=== PATIENT | female | born 1960 | race Caucasian/White ===

== ENCOUNTER 2020-05-22 07:50 | Outpatient (REF) | payer OTHER, SELFPAY ==
[2020-05-22 11:22] LABS: Hematocrit 43.5 % (37-47); Hemoglobin 13.3 g/dl (12.0-16.0); Mean Corpuscular HGB Conc 30.6 g/dl (31.0-35.0); Mean Corpuscular Hemoglobin 31.6 pg (27.0-33.0); Mean Corpuscular Volume 103.3 fL (80-98); Mean Platelet Volume 10.9 fL (9.4-12.3); Platelet Count 228 X10*3/uL (160-400); Red Blood Count 4.21 X10*6/uL (4.20-5.50); Red Cell Distribution Width 12.7 % (11.0-16.0); White Blood Count 4.6 X10*3/uL (4.8-10.8)
[2020-05-22 11:29] LABS: Glucose Urine UA NEG (NEG); Leukocyte Esterase Urine NEG (NEG); Nitrite Urine NEG (NEG); Specific Gravity - Urine 1.025 (1.005-1.025); Urine Blood NEG (NEG); Urine Ketones NEG (NEG); Urine Protein NEG (NEG-TRACE)
[2020-05-22 11:33] LABS: Color Urine YELLOW
[2020-05-22 11:34] LABS: Appearance Urine CLEAR
[2020-05-22 11:43] LABS: Alanine Aminotransferase 14 U/L (0-31); Albumin Level 4.4 g/dL (3.5-5.0); Alkaline Phosphatase 47 U/L (39-117); Anion Gap 13 (12-20); Aspartate Amino Transferase 17 U/L (5-31); Bilirubin Total 0.3 mg/dL (0.0-1.0); Blood Urea Nitrogen 21 mg/dL (9-16); Carbon Dioxide 28 mmol/L (22-29); Chloride 104 mmol/L (96-108); Cholesterol 214 mg/dL; Estimated Glomerular Filt Rate > 60; Glucose Fasting 85 mg/dL (60-99); HDL Cholesterol 76 mg/dL; LDL Cholesterol Calculated 123 mg/dl; Magnesium 2.3 mg/dL (1.6-2.6); Potassium 4.7 mmol/l (3.3-5.1); Sodium 140 mmol/L (135-145); Total Protein 6.9 g/dL (6.5-8.0); Triglycerides 79 mg/dL
[2020-05-22 12:02] LABS: RBC Urine 0 /HPF (0); Squamous Epithelial Cell Urine 2+ /LPF; WBC Urine 0-2 /HPF (0-4)
[2020-05-22 12:07] LABS: TSH reflex Free T4 1.65 mIU/mL (0.32-4.0)
[2020-05-22 14:47] LABS: Calcium Oxalate Crystals Urine TRACE /LPF
== END 2020-05-22 07:51 | disposition home or self-care (01) ==
LOC: HO.HMGCLDS 07:50
PROVIDERS: PCP Internal Medicine; Visit Provider Internal Medicine
DX: Z01.419 Encounter for gynecological examination (general) (routine) without abnormal findings (principal); G47.30 Sleep apnea, unspecified; R00.2 Palpitations
CPT/HCPCS: 36415; 80053; 80061; 81001; 83735; 84443; 85027

== ENCOUNTER → 2020-08-29 14:11 | Outpatient (REF) | payer OTHER, SELFPAY ==
--- NOTE | 2020-08-29 14:30 | ECG_ITS ---
Hook-up date: 2020-08-29 14:21:00 Duration: 24:07:00 Test Indications: PALPITATIONS Medications: 158619 QRS complexes 1383 Ventricular ectopics which represent 1 % of total QRS comp. 53 Supraventricular ectopics which represent <1 % of total QRS comp. * Paced QRS complexs which represent % of total QRS comp. VENTRICULAR ECTOPY 1383 Isolated 0 Bigeminal Cycles 0 Couplets 0 Runs 0 Beats in Runs * Beats LONGEST at * BPM at :: -- * Beats FASTEST at * BPM at :: -- SUPRAVENTRICULAR ECTOPY 39 Isolated 2 Couplets 3 Runs 10 Beats in Runs 4 Beats LONGEST at 160 BPM at 09:37:47 2020-08-30 3 Beats FASTEST at 176 BPM at 13:28:19 2020-08-30 HEART RATES 71 MIN at 02:27:37 2020-08-30 90 AVG 117 MAX at 20:39:41 2020-08-29 LONGEST RR 0.8720 secs at 04:39:50 2020-08-30 S-T LEVELS Channel 1 - 128 mm at 14:21:00 2020-08-29 - 128 mm at 14:21:00 2020-08-29 Channel 2 - 128 mm at 14:21:00 2020-08-29 - 128 mm at 14:21:00 2020-08-29 Channel 3 - 128 mm at 03:34:01 -- - 128 mm at 03:34:01 Basic rhythm Normal sinus rhythm No long pause or profound bradycardia Frequent Premature ventricular complexes Rare Premature atrial complexes Patient reported symptoms of palpitation happend within 10 minutes after the PVC Referred By: Sofi Castillo Overread By: DAVIAN KRUSE MD
== END ==
LOC: HO.CARD 14:11
PROVIDERS: Visit Provider Internal Medicine
DX: R00.2 Palpitations (principal)
CPT/HCPCS: 93225; 93226

== ENCOUNTER 2021-03-24 13:59 | Outpatient (REF) | payer OTHER, SELFPAY | END 2021-03-24 14:00 | disposition home or self-care (01) | LOC: HO.HMGCLDS 13:59 | PROVIDERS: PCP Internal Medicine; Visit Provider Internal Medicine | DX: Z20.822 Contact with and (suspected) exposure to COVID-19 (principal) | CPT/HCPCS: C9803; U0003; U0005 ==

== ENCOUNTER 2022-02-11 08:11 | Outpatient (REF) | payer BC, SELFPAY ==
[2022-02-11 11:38] LABS: MANUAL DIFF FLAG NO
[2022-02-11 11:48] LABS: Basophils Percent Auto 0.8 % (0-2); Eosinophils Absolute Auto 0.1 X10*3/uL (0.0-0.4); Eosinophils Percent Auto 2.1 % (0-4); Hematocrit 42.9 % (37.0-47.0); Hemoglobin 13.4 g/dl (12.0-16.0); Lymphocytes Absolute Auto 2.5 X10*3/uL (1.2-4.9); Lymphocytes Percent Auto 51.3 % (20-40); Mean Corpuscular HGB Conc 31.2 g/dl (31.0-35.0); Mean Corpuscular Hemoglobin 31.7 pg (27.0-33.0); Mean Corpuscular Volume 101.4 fL (80.0-98.0); Mean Platelet Volume 10.6 fL (9.4-12.3); Monocytes Absolute Auto 0.4 X10*3/uL (0.1-1.2); Monocytes Percent Auto 8.2 % (2-11); Neutrophils Absolute Auto 1.8 x10*3/uL (2.0-8.3); Neutrophils Percent Auto 37.6 % (45-73); Platelet Count 239 X10*3/uL (160-400); Red Blood Count 4.23 X10*6/uL (4.20-5.50); Red Cell Distribution Width 12.6 % (11.0-16.0); White Blood Count 4.9 X10*3/uL (4.8-10.8)
[2022-02-11 12:05] LABS: Alanine Aminotransferase 18 U/L (0-31); Albumin Level 4.4 g/dL (3.5-5.0); Alkaline Phosphatase 50 U/L (39-117); Anion Gap 15 (12-20); Aspartate Amino Transferase 21 U/L (5-31); Bilirubin Total 0.6 mg/dL (0.0-1.0); Blood Urea Nitrogen 15 mg/dL (9-16); Calcium 8.9 mg/dL (8.4-10.2); Carbon Dioxide 27 mmol/L (22-29); Chloride 105 mmol/L (96-108); Cholesterol 224 mg/dL; Estimated Glomerular Filt Rate > 60; Glucose Fasting 84 mg/dL (60-99); HDL Cholesterol 69 mg/dL; LDL Cholesterol Calculated 134 mg/dl; Potassium 4.5 mmol/L (3.3-5.1); Sodium 142 mmol/L (135-145); Total Protein 6.7 g/dL (6.5-8.0); Triglycerides 109 mg/dL
[2022-02-11 12:14] LABS: Appearance Urine CLEAR; Color Urine YELLOW; Glucose Urine UA NEG (NEG); Leukocyte Esterase Urine NEG (NEG); Nitrite Urine NEG (NEG); PH 5.5 (5.0-8.0); Specific Gravity - Urine 1.025 (1.005-1.025); Urine Blood NEG (NEG); Urine Ketones NEG (NEG); Urine Protein NEG (NEG-TRACE)
[2022-02-11 12:17] LABS: TSH reflex Free T4 2.26 uIU/mL (0.32-4.0); Vitamin D 25-OH Total 24.9 ng/mL (>30)
== END 2022-02-11 08:12 | disposition home or self-care (01) ==
LOC: HO.HMGCLDS 08:11
PROVIDERS: PCP Internal Medicine; Visit Provider Internal Medicine
DX: Z00.00 Encounter for general adult medical examination without abnormal findings (principal); E55.9 Vitamin D deficiency, unspecified; E78.00 Pure hypercholesterolemia, unspecified
CPT/HCPCS: 36415; 80053; 80061; 81003; 82306; 84443; 85025

== ENCOUNTER → 2022-10-21 14:13 | Outpatient (BNVA) | payer BC, SELFPAY | PROVIDERS: PCP Internal Medicine; Visit Provider Physician Assistant | DX: Z13.89 Encounter for screening for other disorder (principal) ==

== ENCOUNTER → 2022-11-12 13:50 | Outpatient (BNVA) | payer BC, SELFPAY | PROVIDERS: PCP Internal Medicine; Visit Provider Internal Medicine | DX: R00.2 Palpitations (principal); Z86.79 Personal history of other diseases of the circulatory system | CPT/HCPCS: 93005 ==

== ENCOUNTER → 2022-12-10 13:48 | Outpatient (REF) | payer BC, SELFPAY ==
--- NOTE | 2022-12-10 13:53 | HM_ITS ---
* Total monitoring time 14 days. * Underlying rhythm is sinus. Average ventricular rate 86/Min. Range 67 to 131/Min. * Occasional supraventricular ectopy. Very brief runs. Low burden. * Occasional ventricular ectopy. Circle of 0.7%. Isolated beats. No runs. * No significant pauses or AV blocks. * No patient markers or diary events. MTDD
--- NOTE | 2022-12-10 13:53 | CA_ITS ---
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 Normal LV systolic function with grade 1 diastolic dysfunction 2. Normal cardiac valvular Doppler 3. No gross pericardial effusion Findings Left Ventricle Normal left ventricular size, thickness, and systolic function. The visually estimated ejection fraction is between 60-65%. There is no evidence of regional wall motion abnormalities. Spectral Doppler is indicative of an impaired relaxation filling pattern. E/E prime ratio is <8, consistent with normal filling pressures. Evidence suggests grade I (mild) diastolic dysfunction. Right Ventricle Normal right ventricular cavity size and systolic function. Atria Both atria are normal in size. There is no evidence of interatrial shunt. Aortic Valve Normal aortic valve structure and function. There is no aortic valve stenosis. There is no aortic valve regurgitation. Mitral Valve Normal mitral valve structure and function. There is trace mitral valve regurgitation. There is no mitral valve stenosis. Pulmonic Valve The pulmonic valve is likely normal. There is trace pulmonic valve regurgitation. Tricuspid Valve Normal tricuspid valve structure. Tricuspid regurgitation envelope is inadequate for calculation of right ventricular systolic pressure. Normal right atrial pressure. Great Vessels All visible segments of the aorta are normal in size. The pulmonary artery was not well visualized. Venous The inferior vena cava is normal in size and collapses greater than 50% with inspiration. Pericardium/Pleural There is no evidence of pericardial effusion. Prior Study Comparison No prior study available for comparison. Measurements 2D Linear Measurements IVSd: 0.76 0.6-0.9/0.6-1.0 cm LVIDd: 4.53 3.9-5.3/4.2-5.9 cm LVIDd Index: 2.70 2.4-3.2/2.2-3.1 cm/m2 LVIDs: 2.96 2.0-3.6 cm LVPWd: 0.72 0.7-1.1 cm LA Diam: 3.00 2.7-3.8/3.0-4.0 cm LAIDs Index: 1.79 1.5-2.3 cm/m2 LV Mass: 129.76 67-162/88-224 g LV Mass Index: 77.24 43-95/49-115 g/m2 LVOT Diam: 1.80 3.0+(-)1.3 cm 2D Systolic Function EF 4C: 59.20 >55% EF 2C: 60.60 >55% EF BiP: 60.80 >55% Mitral Valve MV Pk E: 0.69 MV PK A: 0.66 MV Decel Time: 143.00 E/A: 1.00 E'Lateral: 9.03 E'Medial: 7.18 E/E' Med: 9.60 E/E' Lat: 7.60 PHT: 42.00 MVA PHT: 5.24 Decel [place]: 4.78 Aortic Valve AoV Pk Maikel: 1.19 AoV Mn Maikel: 0.78 AoV VTI: 0.24 AoV Pk Grad: 6.00 Aov Mn Grad: 3.00 MARCO Cont.VTI: 2.26 LVOT LVOT Pk Maikel: 0.95 LVOT Mn Maikel: 0.63 LVOT VTI: 0.21 LVOT Pk Grad: 4.00 LVOT Mn Grad: 2.00 LVOT Diam: 1.80 LVOT Area: 2.54 Diastolic Function MV Pk E: 0.69 MV Pk A: 0.66 E/A: 1.00 E'Medial: 7.18 E/E' Med: 9.60 E' Laterial: 9.03 E/E' Lat: 7.60 Right Ventricle TAPSE (mm): 20.70 TVS' Maikel: 14.00 Tricuspid Valve RA Press: 3.00 Great Vessels Aorta Sinus of Valsalva: 3.02 2.0-3.[address] [place]: 2.21 1.7-3.4 cm Ao Asc: 2.70 2.1-3.4 cm Ao Arch: 2.30 Updated in Other Vendor System with Status of Final Devendra Loaiza MD electronically signed on 12/11/2022 3:03:38 PM with status of Final
== END ==
LOC: HO.CARD 13:48
PROVIDERS: PCP Internal Medicine; Visit Provider Internal Medicine
DX: R00.2 Palpitations (principal); Z86.79 Personal history of other diseases of the circulatory system
CPT/HCPCS: 93246; 93306

== ENCOUNTER 2023-01-02 07:39 | Outpatient (REF) | payer BC, SELFPAY ==
[2023-01-02 12:13] LABS: Alanine Aminotransferase 15 U/L (0-31); Albumin Level 4.4 g/dL (3.5-5.0); Alkaline Phosphatase 47 U/L (39-117); Anion Gap 11 (12-20); Aspartate Amino Transferase 19 U/L (5-31); Bilirubin Total 0.5 mg/dL (0.0-1.0); Blood Urea Nitrogen 16 mg/dL (9-16); Calcium 9.4 mg/dL (8.4-10.2); Carbon Dioxide 27 mmol/L (22-29); Chloride 106 mmol/L (96-108); Cholesterol 202 mg/dL; Estimated Glomerular Filt Rate > 60; Glucose Random 90 mg/dL (60-115); HDL Cholesterol 76 mg/dL; LDL Cholesterol Calculated 108 mg/dl; Potassium 4.3 mmol/L (3.3-5.1); Sodium 140 mmol/L (135-145); Thyroid Stimulating Hormone 1.84 uIU/mL (0.32-4.0); Triglycerides 90 mg/dL
== END 2023-01-02 07:40 | disposition home or self-care (01) ==
LOC: HO.HMGCLDS 07:39
PROVIDERS: PCP Internal Medicine; Visit Provider Physician Assistant
DX: K52.9 Noninfective gastroenteritis and colitis, unspecified (principal); K58.9 Irritable bowel syndrome, unspecified; F41.9 Anxiety disorder, unspecified; R19.8 Other specified symptoms and signs involving the digestive system and abdomen; E55.9 Vitamin D deficiency, unspecified
CPT/HCPCS: 36415; 80053; 80061; 82607; 82746; 84443; 85025

== ENCOUNTER 2023-01-06 11:53 | Day surgery (SDC) | payer BC, SELFPAY ==
--- NOTE | 2023-01-02 14:29 | HO.ANESPROP2 ---
Documented by User: Devika Colmenares NP 01/02/23 14:33 HPI - Anesthesia Eval Consult details Narrative: 62yo F for Colonoscopy. PMFSH Active Problems Active Problems: All Active Problems (Updated 11/12/22 @ 14:10 by To Cast MD) Shortness of breath (Acute) History of atrial fibrillation (Acute) History of colonic polyps (Acute) Vitamin D deficiency (Acute) Anxiety (Acute) High cholesterol (Acute) Hx of mammogram (Acute) H/O colonoscopy (Acute) Basal cell carcinoma (Acute) Palpitations (Acute) Annual physical exam (Acute) Sleep apnea (Acute) Normal pelvic exam (Acute) Past Medical History Medical History (Updated 01/06/23 @ 12:06 by Nicole Marti, RN) Alopecia Annual physical exam Anxiety Arthritis Basal cell carcinoma Depression Hearing loss High cholesterol Hx of mammogram Migraine Normal pelvic exam Palpitations Plantar fasciitis Shortness of breath Sleep apnea Family History Family History Father High cholesterol Osteoarthritis Gout HTN (hypertension) Diabetes mellitus Mother Depression Psoriasis Rheumatoid arthritis Dementia Surgical History Surgical History (Updated 01/06/23 @ 12:06 by Nicole Marti RN) H/O colonoscopy History of partial hysterectomy History of removal of ovarian cyst History of vaginal hysterectomy Hx of hand surgery Hx of skin cancer, basal cell Social History Social History Household Members: Spouse Household Members Other:: lives with boyfriend, 25 and 28, 5 yr grandson, works at [employer] Housing: House Alcohol intake: never Patient Tobacco Use Status: Former Tobacco user Quit Date: 34 yrs ago e-Cigarette/Vaping Use: Never Used Use of substances other than those prescribed or required for medical reasons: No Are you DNR?: No Advance Directives: No Advance Directives Information Provided: Yes Current occupational status: employed Cognitive needs: No Hearing needs: No Vision needs: Yes Meds Allergies Allergy/AdvReac Type Severity Reaction Status Date / Time No Known Allergies Allergy Verified 11/12/22 13:55 [No Known Allergies*] Home Medications Medication Instructions Recorded Confirmed Last Taken Type estradiol 0.5 mg tablet 0.5 mg PO DAILY 05/19/20 11/12/22 Unknown History finasteride 5 mg tablet 1.25 mg PO DAILY 05/19/20 11/12/22 Unknown History valacyclovir 500 mg tablet 500 mg PO DAILY 05/19/20 11/12/22 Unknown History Exam Exam Date and Time: January 02, 2023 1429 Pertinent Lab Results Pertinent Lab Results: Laboratory Tests 01/02/23 01/02/23 08:00 08:00 WBC 4.9 Hgb 13.1 Hct 42.4 Plt Count 228 Sodium 140 Potassium 4.3 Chloride 106 Carbon Dioxide 27 BUN 16 Creatinine 0.83 Narrative Narrative: EKG 10/2022 sinus rhythm at 91/Min; no significant ST-T changes and otherwise unremarkable.? Normal NH and corrected QT. 14 Day Holter 11/2022 Total monitoring time 14 days. Underlying rhythm is sinus.? Average ventricular rate 86/Min.? Range 67 to 131/Min. Occasional supraventricular ectopy.? Very brief runs.? Low burden. Occasional ventricular ectopy.? [place] of 0.7%.? Isolated beats.? No runs. No significant pauses or AV blocks. No patient markers or diary events. ECHO 11/2022 Conclusions: - 1.? Normal LV systolic function with grade 1 diastolic ? dysfunction? 2.? Normal cardiac valvular Doppler? 3.? No gross pericardial effusion? ? ? Assessment and Plan Assessment Anesthesia Assessment: Chart Reviewed Documented by User: Vance Peters MD 01/06/23 12:40 [facility] Past Medical History Medical History (Updated 01/06/23 @ 12:06 by Nicole Marti RN) Alopecia Annual physical exam Anxiety Arthritis Basal cell carcinoma Depression Hearing loss High cholesterol Hx of mammogram Migraine Normal pelvic exam Palpitations Plantar fasciitis Shortness of breath Sleep apnea Family History Family History Father High cholesterol Osteoarthritis Gout HTN (hypertension) Diabetes mellitus Mother Depression Psoriasis Rheumatoid arthritis Dementia Family history of problems with anesthesia: No Surgical History Surgical History (Updated 01/06/23 @ 12:06 by Nicole Marti RN) H/O colonoscopy History of partial hysterectomy History of removal of ovarian cyst History of vaginal hysterectomy Hx of hand surgery Hx of skin cancer, basal cell History of Problems with Anesthesia: No Social History Social History Household Members: Spouse Household Members Other:: lives with boyfriend, 25 and 28, 5 yr grandson, works at [employer] Housing: House Alcohol intake: never Patient Tobacco Use Status: Former Tobacco user Quit Date: 34 yrs ago e-Cigarette/Vaping Use: Never Used Use of substances other than those prescribed or required for medical reasons: No Are you DNR?: No Advance Directives: No Advance Directives Information Provided: Yes Current occupational status: employed Cognitive needs: No Hearing needs: No Vision needs: Yes Meds Allergies Allergy/AdvReac Type Severity Reaction Status Date / Time No Known Allergies Allergy Verified 11/12/22 13:55 [No Known Allergies*] Home Medications Medication Instructions Recorded Confirmed Last Taken Type estradiol 0.5 mg tablet 0.5 mg PO DAILY 05/19/20 11/12/22 Unknown History finasteride 5 mg tablet 1.25 mg PO DAILY 05/19/20 11/12/22 Unknown History valacyclovir 500 mg tablet 500 mg PO DAILY 05/19/20 11/12/22 Unknown History Exam Airway Mallampati Class: II TM Dist: >3cm Neck ROM: Full Assessment and Plan Assessment Anesthesia Assessment: Anesthesia Plan Discussed Final Anesthetic Review Family History of Problems with Anesthesia: No History of Problems with Anesthesia: No NPO: Yes ASA Class: II Final Preanesthetic Review: No Changes in Pt Med Stat, Meds/Allgs Chart Reviewed, Consent Obtained/Reviewed and Anes Risks/Benef Reviewed Patient Risk: Intermediate Procedure Risk: Low Anesthetic Plan Anesthetic Plan: MAC: Disposition: Standard PACU
[2023-01-06 12:06] VITALS: BMI 23.3
[2023-01-06 12:16] VITALS: BP 116/72; PULSE 87; RESP 15; TEMP 36.6; O2SAT 98
--- NOTE | 2023-01-06 12:34 | MHC.SHP ---
Pre-Procedural Eval Section A Date of Service: 01/06/23 The patient is an INPATIENT: No The History & Physical has been completed within 30 days and I have reviewed it.: No Section B Chief Complaint: Personal history of colonic polyps Relevant Family History (Specify if Yes): No Relevant Social History: Tobacco Use (past smoker) Present Medications: see Short Stay Collaborative assessment Medical History: Significant History (Basal cell carcinoma Depression Hearing loss High cholesterol Hx of mammogram Migraine Normal pelvic exam Palpitations Plantar fasciitis Shortness of breath Sleep apnea) History of Previous Operations: Relevant previous surgery/procedure and date(s) (H/O colonoscopy History of partial hysterectomy History of removal of ovarian cyst History of vaginal hysterectomy Hx of skin cancer, basal cell) Allergies: Allergies Allergy/AdvReac Type Severity Reaction Status Date / Time No Known Allergies Allergy Verified 11/12/22 13:55 [No Known Allergies*] Review of Systems Sugical H&P ROS: Negative: Constitution, Cardiovascular, Respiratory and Gastrointestinal Exam Surgical H&P Exam: Normal: Heart, Normal: Lungs, Normal: Extremities and Normal: Abdomen Plan Diagnosis/Plan: Unchanged I have reviewed the history and physical and performed a pertinent physical examination on my patient. No changes have occurred unless specified. Time Spent With Patient Time: Total time managing care of this patient today ____ minutes.
--- NOTE | 2023-01-06 14:05 | W.PM.OPN ---
Operative Note Operative Note Date of Service: 01/06/23 Narrative: COLONOSCOPY TILL CECUM WITH SNARE POLYPECTOMY Pre-op diagnosis: Colon cancer screening, history of colon polyps Post-op diagnosis:? Colon polyps, diverticulosis, hemorrhoids Endoscopist:? Vero Thornton MD Anesthesia:?MAC Consent: Indications for the procedure and potential complications of bleeding, perforation, reaction to medications and missed diagnosis were discussed with the patient and informed consent was obtained. Instrument: Olympus PCF H 190 L variable stiffness pediatric colonoscope Monitoring: Vital signs and clinical assessment, intermittent blood pressure monitoring, continuous EKG monitoring, Pulse oximetry and Carbon Dioxide monitoring were done throughout the procedure. Please see anesthesia flowsheet. Colon withdrawl time was 22 minutes. Procedure: The patient was placed in the left lateral decubitis position and pre-procedure medications were administered. After a digital rectal examination of the ano-rectum, the video colonoscope was inserted into the rectum and advanced through the colon to the cecum. The colonoscope was slowly withdrawn in a retrograde panoramic fashion and the colon mucosa was carefully examined including a retroflexed view of the rectum. Findings and interventions are described below. Procedure Difficulty: Without difficulty Findings: Terminal Ileum: Not evaluated Cecum: Normal Ascending Colon: A 1.8 to 2 cms polyp in the mid AC - removed with a hot snare Transverse Colon: A 12 -15 mm sessile polyp - removed with a hot snare Descending Colon: Moderate diverticulosis Sigmoid Colon: A 15 - 18 mm sessile polyp - removed with a hot snare. Moderate diverticulosis Rectum: A 10 -12 mm sessile polyp - removed with a hot snare Ano-rectum: Moderate internal hemorrhoids Colon preparation: Excellent Impression and Post Procedure Diagnosis: Colonoscopy Findings: Four medium sized polyps removed Moderate diverticulosis seen in the left colon Moderate hemorrhoids on retroflexed exam. Plan: Await pathology results Patient has an appointment on 01/20/23 in the GI Clinic with HALEIGH Alvarado. Repeat Colonoscopy interval based on path results - in 3 years if polyps are adenomatous and 10 years if polyps are hyperplastic. Above findings were reviewed with the patient and colon polyps and diverticulosis handouts were given in the discharge area
[2023-01-06 14:06] VITALS: BP 99/50; PULSE 71; RESP 16; TEMP 36.4; O2SAT 99
[2023-01-06 14:21] VITALS: BP 120/54; PULSE 70; RESP 14; TEMP 36.4; O2SAT 99
[2023-01-06 14:35] VITALS: BP 116/59; PULSE 70; RESP 14; TEMP 36.3; O2SAT 99
== END 2023-01-06 14:42 | disposition home or self-care (01) ==
PROVIDERS: PCP Internal Medicine; Visit Provider Internal Medicine Gastroenterology
PROC: 0DJD8ZZ Inspection of Lower Intestinal Tract, Via Natural or Artificial Opening Endoscopic (ICD-10-PCS; CPT 45378; principal; 2023-01-06 14:30)
DX: Z12.11 Encounter for screening for malignant neoplasm of colon (principal); Z86.010 Personal history of colon polyps; D12.2 Benign neoplasm of ascending colon; D12.5 Benign neoplasm of sigmoid colon; D12.8 Benign neoplasm of rectum; K63.5 Polyp of colon; K57.30 Diverticulosis of large intestine without perforation or abscess without bleeding; K64.8 Other hemorrhoids; K58.9 Irritable bowel syndrome, unspecified; R19.8 Other specified symptoms and signs involving the digestive system and abdomen; E55.9 Vitamin D deficiency, unspecified; E78.00 Pure hypercholesterolemia, unspecified; G47.30 Sleep apnea, unspecified; R00.2 Palpitations; R06.02 Shortness of breath; Z86.79 Personal history of other diseases of the circulatory system; F41.9 Anxiety disorder, unspecified; Z79.899 Other long term (current) drug therapy; Z85.828 Personal history of other malignant neoplasm of skin; Z87.891 Personal history of nicotine dependence; Z98.890 Other specified postprocedural states
CPT/HCPCS: 45385; 88305

== ENCOUNTER → 2023-01-06 11:53 | Outpatient (BNV) | payer BC, SELFPAY | PROVIDERS: PCP Internal Medicine; Visit Provider Internal Medicine Gastroenterology | DX: Z12.11 Encounter for screening for malignant neoplasm of colon (principal); Z86.010 Personal history of colon polyps; D12.2 Benign neoplasm of ascending colon; D12.3 Benign neoplasm of transverse colon; D12.5 Benign neoplasm of sigmoid colon; D12.8 Benign neoplasm of rectum; K57.30 Diverticulosis of large intestine without perforation or abscess without bleeding; K64.8 Other hemorrhoids | CPT/HCPCS: 45385 ==

== ENCOUNTER 2023-01-22 14:49 | Outpatient (AMB) | payer BC, SELFPAY ==
--- NOTE | 2023-01-22 14:52 | MHC.OFFVIS ---
Intake Vital Signs 01/22/23 14:53 Height 5 ft 4 in Weight 141 lb BMI 24.2 BP 122/70 Blood Pressure Location Lt brachial Position Sitting Pulse 74 Intake Visit Reasons: S/p [place]; Dr. Leroy Intake Note: Patient follow up for colonoscopy results. Patient denies any GI issues. 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 She expresses her gratitude for her entire experience- She had been referred to Cardiology prior to procedure for risk stratification. She is extremely happy that she had been able to be evaluated-and reassured. She tolerated procedure well She has no GI or general complains [facility] Medical History (Updated 01/22/23 @ 15:23 by Lulú Quinteros PA-C) Alopecia Annual physical exam Anxiety Arthritis Basal cell carcinoma Depression Hearing loss High cholesterol Hx of mammogram Migraine Normal pelvic exam Palpitations Plantar fasciitis Shortness of breath Sleep apnea Surgical History H/O colonoscopy History of partial hysterectomy History of removal of ovarian cyst History of vaginal hysterectomy Hx of hand surgery Hx of skin cancer, basal cell Family History Father High cholesterol Osteoarthritis Gout HTN (hypertension) Diabetes mellitus Mother Depression Psoriasis Rheumatoid arthritis Dementia Social History Household Members: Spouse Household Members Other:: lives with boyfriend, 25 and 28, 5 yr grandson, works at [employer] Housing: House Alcohol intake: never Patient Tobacco Use Status: Former Tobacco user Quit Date: 34 yrs ago e-Cigarette/Vaping Use: Never Used Current occupational status: employed Cognitive needs: No Hearing needs: No Vision needs: Yes Review of Systems Const All systems reviewed & are unremarkable except as noted in HPI and below Card Denies chest pain and Denies dyspnea Resp Denies dyspnea Physical Exam Vital Signs: Last Vital Signs Pulse 74 01/22/23 14:53 BP 122/70 01/22/23 14:53 BMI result Body Mass Index 24.2 Const General: cooperative, healthy appearing, comfortable, no acute distress and well groomed Orientation/consciousness: patient oriented x3 Limitations: no limitations Resp Effort & Inspection: normal respiratory effort and able to speak in complete sentences Neuro General: patient oriented x3 Psych Appearance: grossly normal and well kempt Mental Status: mental status grossly normal Speech and movement: Normal speech and movement present and Clear speech present Affect: normal affect Attitude: cooperative Thought process: Normal thought process present Thought content: Normal thought content present Insight: Good insight present (Psych) Judgement: Good judgement present (Psych) Results Reviewed Results Reviewed: w. Procedure Difficulty: Without difficulty Findings: Terminal Ileum: Not evaluated Cecum:? Normal Ascending Colon:? A 1.8 to 2 cms polyp in the mid AC - removed with a hot snare Transverse Colon:? A 12 -15 mm sessile polyp - removed with a hot snare Descending Colon:? Moderate diverticulosis Sigmoid Colon:? A 15 - 18 mm sessile polyp - removed with a hot snare.? Moderate diverticulosis Rectum:? A 10 -12 mm sessile polyp - removed with a hot snare Ano-rectum:? Moderate internal hemorrhoids Colon preparation: Excellent ? Impression and Post Procedure Diagnosis: Colonoscopy Findings: Four medium sized polyps removed Moderate diverticulosis seen in the left colon Moderate hemorrhoids on retroflexed exam. Plan: Await pathology results Patient has an appointment on 01/20/23 in the GI Clinic with HALEIGH Alvarado. Repeat Colonoscopy interval based on path results - in 3 years if polyps are adenomatous and 10 years if polyps are hyperplastic. Above findings were reviewed with the patient and colon polyps and diverticulosis handouts were given in the discharge area Name:Marjorie Mejia Age/Sex: 62/F Attending: Vero Thornton MD : 1960 Submitted by: Vero Thornton MD Copies to: Sofi Castillo MD MR #: [id number] ? Status: [facility] Collected: 01/06/23 Location: [facility] Received: 01/06/23 Diagnosis A. ? Colon, ascending, polyp:? Sessile serrated lesion/polyp without dysplasia. B.? Colon, transverse, polyp:? Consistent with hyperplastic polyp.? C.? Colon, sigmoid, polyp:? Benign polypoid perineurioma. D.? Colon, rectal polyp:? Benign polypoid perineurioma. Clinical History Pre-Op Dx:? colon cancer screening, personal history of colonic polyps Post-Op Dx: colon polyps, hemorrhoids, diverticulosis Assessment & Plan Assessment & Plan (1) Sessile colonic polyp: Code(s): K63.5 - Polyp of colon Plan: 3 year repeat colonoscopy (2) Perineurioma: Comment: benign Code(s): D36.9 - Benign neoplasm, unspecified site (3) Hemorrhoids: Code(s): K64.9 - Unspecified hemorrhoids (4) Diverticulosis of colon: Code(s): K57.30 - Diverticulosis of large intestine without perforation or abscess without bleeding Plan 3 year Medications: New hydrocortisone 2.5% (Proctosol HC) 1 appl [place] BEDTIME PRN 30 grams 3RF hemorrhoids Patient Instructions: Repeat colonoscopy 3 years HFD avoid straining Diverticulosis/ diverticulitis- ER protocol Coding Level of Care Code Est Pt Level 3 (20370) Diagnoses Sessile colonic polyp K63.5 Perineurioma D36.9 Hemorrhoids K64.9 Diverticulosis of colon K57.30 Time Spent (min) 30
[2023-01-22 14:53] VITALS: BP 122/70; PULSE 74; BMI 24.2
== END 2023-01-22 15:57 | disposition home or self-care (01) ==
PROVIDERS: PCP Internal Medicine; Visit Provider Physician Assistant
DX: K63.5 Polyp of colon (principal); D36.9 Benign neoplasm, unspecified site; K64.9 Unspecified hemorrhoids; K57.30 Diverticulosis of large intestine without perforation or abscess without bleeding
CPT/HCPCS: 99213

== ENCOUNTER → 2023-01-22 14:49 | Outpatient (BNVA) | payer BC, SELFPAY | PROVIDERS: PCP Internal Medicine; Visit Provider Physician Assistant ==

== ENCOUNTER 2023-02-10 10:26 | Outpatient (AMB) | payer BC, SELFPAY ==
[2023-02-10 10:48] VITALS: BP 112/66; PULSE 84; O2SAT 97; BMI 24.7
--- NOTE | 2023-02-10 10:48 | A.OFFPC_ITS ---
Vital Signs 02/10/23 10:48 Height 5 ft 4 in Weight 144 lb BMI 24.7 BP 112/66 Blood Pressure Location Lt brachial Position Sitting Pulse 84 Pulse Source Pulse Oximeter Pulse Oximetry (%) 97 Oxygen Delivery Method Room Air Intake Visit Reasons: PE Intake Note: Pt is here today for PE. Allergies No Known Allergies [No Known Allergies*] Allergy (Verified 02/10/23 10:50) Medication List - Last Reconciled 02/10/23 by Sofi Castillo MD estradiol 0.5 mg PO DAILY finasteride 1.25 mg PO DAILY fluoxetine 20 mg PO BEDTIME hydrocortisone 2.5% (Proctosol HC) 1 appl [place] BEDTIME PRN simvastatin 20 mg PO BEDTIME valacyclovir 500 mg PO DAILY Tobacco use date assessed: 02/10/23 Fall risk assessment: 1 Fall in past year Last assessed Fall Risk: 02/10/23 Dental Screening Dental Screen Date: 02/10/23 Did you have a dental visit in the last 12 months?: Yes Did you have a dental problem in the last 6 months where you did not have access to dental care?: No Was dental information given to patient?: Patient has dentist HPI PE HPI Details Patient presents for physical PFSH Medical History Alopecia Annual physical exam Anxiety Arthritis Basal cell carcinoma Depression Hearing loss High cholesterol Hx of mammogram Migraine Normal pelvic exam Palpitations Plantar fasciitis Shortness of breath Sleep apnea Surgical History H/O colonoscopy History of partial hysterectomy History of removal of ovarian cyst History of vaginal hysterectomy Hx of hand surgery Hx of skin cancer, basal cell Family History Father High cholesterol Osteoarthritis Gout HTN (hypertension) Diabetes mellitus Mother Depression Psoriasis Rheumatoid arthritis Dementia Mental health disorder Brother Substance use disorder Social History Household Members: Spouse Household Members Other:: lives with boyfriend, 25 and 28, 5 yr grandson, works at [employer] Housing: House Alcohol intake: never Patient Tobacco Use Status: Former Tobacco user Quit Date: 34 yrs ago e-Cigarette/Vaping Use: Never Used Current occupational status: employed Cognitive needs: No Hearing needs: No Vision needs: Yes Questionnaire PHQ-9 Over the last 2 weeks, how often have you been bothered by any of the following problems? 1. Little interest or pleasure in doing things: not at all 2. Feeling down, depressed, or hopeless: not at all 3. Trouble falling or staying asleep, or sleeping too much: not at all 4. Feeling tired or having little energy: not at all 5. Poor appetite or overeating: not at all 6. Feeling bad about yourself - or that you are a failure or have let yourself or your family down: not at all 7. Trouble concentrating on things, such as reading the newspaper or watching television: not at all 8. Moving or speaking so slowly that other people could have noticed. Or the opposite - being so fidgety or restless that you have been moving around a lot more than usual: not at all 9. Thoughts that you would be better off or of hurting yourself in some way: not at all Total score: 0 Depression Screening Interpretation: Negative Source: Developed by Drs. Hong Lucia, Yudelka Ba, Darrius Gonzales and colleagues, with an educational jamison from [employer]. Thrive Questionnaire Date Thrive assessed: 02/10/23 I am a: Patient What is your living situation today?: I have a steady place to live Within the past 12 months, did the food you bought not last and you didn't have the money to get more?: Never true Within the past 12 months, did you worry whether your food would run out before you got money to buy more?: Never true Do you have trouble paying for medicines?: No Do you have trouble getting transportation to medical appointments?: No Do you have trouble paying your heating and electricity bill?: No Do you have trouble taking care of your child, family member or friend?: No Do you have trouble with day-to-day activities such as bathing, preparing meals, shopping, managing finances, etc.?: No Are you currently unemployed and looking for a job?: No Are you interested in more education?: No Please select the resources that you would like help with: None Currently or been in a relationship where the following occur: no concerns reported AUDIT C Alcohol Use Questionnaire (AUDIT-C) 1. How often do you have a drink containing alcohol?: Never 3. How often do you have six or more drinks on one occasion?: Never Total Score: 0 ALFREDITO-7 AMB Questionnaire ALFREDITO-7 Date ALFREDITO - 7 assessed: 02/10/23 Feeling nervous, anxious, or on edge: 0 = Not at all Not being able to stop or control worryin = Not at all Worrying too much about different things: 0 = Not at all Trouble relaxin = Not at all Being so restless that it is hard to sit still: 0 = Not at all Becoming easily annoyed or irritable: 0 = Not at all Feeling afraid as if something awful might happen: 0 = Not at all Total ALFREDITO-7 score (0-4 normal; 5-9 mild; 10-14 moderate; 15-21 severe): 0 Source: Developed by Drs. Hong Lucia, Yudelka Ba, Darrius Gonzales and colleagues, with an educational jamison from [employer]. Review of Systems Const All systems reviewed & are unremarkable except as noted in HPI and below Reports no additional complaints Eyes Reports no additional complaints Card Reports no additional complaints Reports no additional complaints Musc Reports no additional complaints Skin/Breast Reports system reviewed and no additional complaints, except as documented Physical exam (Primary Care) Vital Signs: Last Vital Signs Pulse 84 02/10/23 10:48 BP 112/66 02/10/23 10:48 Pulse Ox 97 02/10/23 10:48 Oxygen Delivery Method Room Air 02/10/23 10:48 BMI result Body Mass Index 24.7 Tobacco/Smoking Status: Tobacco use Status Tobacco use date assessed 02/10/23 02/10/23 10:54 Patient Tobacco Use Status Former Tobacco user 02/10/23 10:54 e-Cigarette/Vaping Use Never Used 02/10/23 10:54 PHQ-9: PHQ-9 Score PHQ-9: Total score 0 02/10/23 11:37 Depression Screening Interpretation: Negative Thrive Assessment: Date of Thrive Assessment Date Thrive assessed 02/10/23 02/10/23 10:57 Currently or been in a relationship where the following occur: no concerns reported Const General: no acute distress HENMT Ears: hearing grossly normal bilaterally Face and sinus: Yes normal facial exam Eyes General: appearance normal, both eyes and all related structures Neck Neck: Yes no lymphadenopathy and Yes supple Chest Chest palpation & inspection: normal inspection of the chest Resp Effort & Inspection: normal respiratory effort Auscultation: clear to auscultation bilaterally Cardio Rhythm: regular rhythm Heart sounds: S1 normal heart sound present and S2 normal heart sound present GI Inspection: Yes normal to inspection Palpation (GI): Soft to palpation Percussion: Yes normal to percussion Auscultation: normal bowel sounds Assessment and Plan Assessment & Plan (1) Annual physical exam: Code(s): Z00.00 - Encounter for general adult medical examination without abnormal findings Plan: Well-balanced diet and regular physical activity discussed with the patient. She is up-to-date with mammogram and colonoscopy (2) Vitamin D deficiency: Code(s): E55.9 - Vitamin D deficiency, unspecified (3) History of atrial fibrillation: Comment: Negative Holter and echo 09/19 Code(s): Z86.79 - Personal history of other diseases of the circulatory system (4) High cholesterol: Code(s): E78.00 - Pure hypercholesterolemia, unspecified Plan: Continue statin Orders: Orders Comprehensive [place]. Panel Fast 365 Days E55.9 - Vitamin D deficiency, unspecified, E78.00 - Pure hypercholesterolemia, unspecified, Z00.00 - Encounter for general adult medical examination without abnormal findings, Z86.79 - Personal history of other diseases of the circulatory system Lipid Panel 365 Days E55.9 - Vitamin D deficiency, unspecified, E78.00 - Pure hypercholesterolemia, unspecified, Z00.00 - Encounter for general adult medical examination without abnormal findings, Z86.79 - Personal history of other diseases of the circulatory system TSH reflex Free T4 365 Days E55.9 - Vitamin D deficiency, unspecified, E78.00 - Pure hypercholesterolemia, unspecified, Z00.00 - Encounter for general adult medical examination without abnormal findings, Z86.79 - Personal history of other diseases of the circulatory system Vitamin D 25-OH Total 365 Days E55.9 - Vitamin D deficiency, unspecified, E78.00 - Pure hypercholesterolemia, unspecified, Z00.00 - Encounter for general adult medical examination without abnormal findings, Z86.79 - Personal history of other diseases of the circulatory system Complete Blood Count Auto Diff 365 Days E55.9 - Vitamin D deficiency, unspecified, E78.00 - Pure hypercholesterolemia, unspecified, Z00.00 - Encounter for general adult medical examination without abnormal findings, Z86.79 - Personal history of other diseases of the circulatory system Coding Level of Care Code Est Pt Prev Care 40-64y(33259) Diagnoses Annual physical exam Z00.00 Vitamin D deficiency E55.9 History of atrial fibrillation Z86.79 High cholesterol E78.00
== END 2023-02-10 14:29 | disposition home or self-care (01) ==
PROVIDERS: Visit Provider Internal Medicine
DX: Z00.00 Encounter for general adult medical examination without abnormal findings (principal); E55.9 Vitamin D deficiency, unspecified; Z86.79 Personal history of other diseases of the circulatory system; E78.00 Pure hypercholesterolemia, unspecified
CPT/HCPCS: 99396

== ENCOUNTER 2023-04-23 07:46 | Outpatient (AMB) | payer BC, SELFPAY ==
[2023-04-23 08:04] VITALS: BP 112/68; PULSE 92; O2SAT 98; BMI 24.0
--- NOTE | 2023-04-23 08:04 | MHC.PC.OV ---
Vital Signs 04/23/23 08:04 Height 5 ft 4 in Weight 140 lb BMI 24.0 BP 112/68 Blood Pressure Location Lt brachial Position Sitting Pulse 92 Pulse Source Pulse Oximeter Pulse Oximetry (%) 98 Oxygen Delivery Method Room Air Intake Visit Reasons: Follow up to discuss increase on med Allergies No Known Allergies [No Known Allergies*] Allergy (Verified 04/23/23 08:06) Medication List - Last Reconciled 04/23/23 by Sofi Castillo MD estradiol 0.5 mg PO DAILY finasteride 1.25 mg PO DAILY fluoxetine 20 mg PO BEDTIME hydrocortisone 2.5% (Proctosol HC) 1 appl [place] BEDTIME PRN simvastatin 20 mg PO BEDTIME valacyclovir 500 mg PO DAILY Tobacco use date assessed: 04/23/23 HPI Follow up to discuss increase on med HPI Details Pt presents for f/u depression. Patient's father 10 months ago and she has been grieving. Patient denies suicidal ideation change in appetite or sleep pattern. Patient would like to increase fluoxetine. She is not interested in psychotherapy and has a good support system with her friends and family. [facility] Medical History Arthritis Shortness of breath Anxiety Hx of mammogram Basal cell carcinoma Normal pelvic exam Sleep apnea Annual physical exam Palpitations Alopecia Hearing loss Migraine Plantar fasciitis High cholesterol Depression Surgical History Hx of hand surgery H/O colonoscopy History of partial hysterectomy Hx of skin cancer, basal cell History of removal of ovarian cyst History of vaginal hysterectomy Family History Father High cholesterol Osteoarthritis Gout HTN (hypertension) Diabetes mellitus Mother Depression Psoriasis Rheumatoid arthritis Dementia Mental health disorder Brother Substance use disorder Social History Household Members: Spouse Household Members Other:: lives with boyfriend, 25 and 28, 5 yr grandson, works at [employer] Housing: House Alcohol intake: never Patient Tobacco Use Status: Former Tobacco user Quit Date: 34 yrs ago e-Cigarette/Vaping Use: Never Used Current occupational status: employed Cognitive needs: No Hearing needs: No Vision needs: Yes Questionnaire Thrive Questionnaire Date Thrive assessed: 02/10/23 ALFREDITO-7 AMB Questionnaire ALFREDITO-7 Date ALFREDITO - 7 assessed: 02/10/23 Source: Developed by Drs. Hong Lucia, Yudelka Ba, Darrius Gonzales and colleagues, with an educational jamison from [employer]. Review of Systems Const All systems reviewed & are unremarkable except as noted in HPI and below Reports no additional complaints Eyes Reports no additional complaints ENT Reports no additional complaints Card Reports no additional complaints GI Reports no additional complaints Reports no additional complaints Physical exam (Primary Care) Vital Signs: Last Vital Signs Pulse 92 04/23/23 08:04 BP 112/68 04/23/23 08:04 Pulse Ox 98 04/23/23 08:04 Oxygen Delivery Method Room Air 04/23/23 08:04 BMI result Body Mass Index 24.0 Tobacco/Smoking Status: Tobacco use Status Tobacco use date assessed 04/23/23 04/23/23 08:08 Patient Tobacco Use Status Former Tobacco user 04/23/23 08:08 e-Cigarette/Vaping Use Never Used 04/23/23 08:08 Thrive Assessment: Date of Thrive Assessment Date Thrive assessed 02/10/23 04/23/23 08:08 Const General: no acute distress HENMT Head: Yes normal to inspection Resp Effort & Inspection: normal respiratory effort Auscultation: clear to auscultation bilaterally Cardio Rhythm: regular rhythm Heart sounds: S1 normal heart sound present and S2 normal heart sound present Assessment and Plan Assessment & Plan (1) Anxiety and depression: Code(s): F41.9 - Anxiety disorder, unspecified; F32.A - Depression, unspecified Plan: Increase fluoxetine to 30 mg a day, counseling was recommended but patient declined. She will follow-up as needed Medications: New fluoxetine 30 mg (1.5 x 20 mg) PO DAILY 135 tabs 1RF Discontinued fluoxetine Discontinued Reason: Doctor's Order 20 mg PO BEDTIME 90 caps 3RF Coding Level of Care Code Est Pt Level 3 (81336) Diagnoses Anxiety and depression F41.9; F32.A
== END 2023-04-23 09:16 | disposition home or self-care (01) ==
PROVIDERS: PCP Internal Medicine; Visit Provider Internal Medicine
DX: F41.9 Anxiety disorder, unspecified (principal); F32.A Depression, unspecified
CPT/HCPCS: 99213

== ENCOUNTER 2023-10-02 11:16 | Emergency (ER) | payer OTHER, SELFPAY ==
--- NOTE | ~2023-10-02 | XR_ITS ---
EXAMINATION: XR HAND, RIGHT CLINICAL INFORMATION: Crush injury COMPARISON: Right hand 08/03/2019 TECHNIQUE: PA, lateral, and oblique views of the right hand. FINDINGS: There has been healing of the previously seen fracture of the middle phalanx of the second digit. There are new acute fractures involving the distal phalanges of the third and fourth digits. The third digit fracture involves only the terminal tuft. The fourth digit fracture involves the terminal tuft as well as the base lateral corner involving the articular surface. No other fractures are seen. XR/XR hand RT min 3V IMPRESSION: Acute fractures involving the distal phalanges of the third and fourth digits as described above.
[2023-10-02 11:32] VITALS: BP 136/70; PULSE 105; O2SAT 99; BMI 23.1
[2023-10-02] MEDS: oxyCODONE HCl Immed Release 5 MG TABLET PO (11:49)
[2023-10-02] MEDS: Acetaminophen 325 MG TABLET 975 MG PO (11:50)
[2023-10-02 11:52] VITALS: BP 139/65; TEMP 36.9
--- NOTE | 2023-10-02 12:15 | ED.UPPEXIN ---
HPI - Extremity Injury (Upper) General Chief Complaint: Wound/Laceration Stated Complaint: R HAND STUCK IN ROLLING MACHINE @ WORK Time Seen by Provider: 10/02/23 11:36 Source: patient and EMS Mode of arrival: EMS Limitations: no limitations History of Present Illness HPI narrative: 62-year-old female, right-hand dominant presents the ER for evaluation of a crush injury to her right hand. 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 She was holding a rag that got sucked into machine, pulling her hand along with it and subsequently crushing her 3rd and 4th digits. She states her hand was stuck in there for approximately 5 minutes until was able to get removed. She sustained wounds to the 3rd and 4th digits and a skin flap to the pinky finger, all on the palmar side of the hand. No nail involvement. 911 was called, wounds were wrapped in gauze. She is able to flex and extend all digits. She has moderate to severe pain at this time. Active oozing on arrival. Tdap up to date. she has history of crush injury to righ 1st finger in the past requiring surgery MD complaint: injury to: right, hand and finger Onset (ago): minute(s) Other Extremity Injury: right: fingers ( Third and 4th) Other injuries: none Handedness: right Place: work Severity: moderate Severity scale (1-10): 7 Relieving factors: immobilization Exacerbating factors: movement of extremity Context: crush and injury Associated symptoms: denies other symptoms Treatments prior to arrival: bandage Related Data Home Medications ?Medication ?Instructions ?Recorded ?Confirmed estradiol 0.5 mg tablet 0.5 mg PO DAILY 05/19/20 04/23/23 finasteride 5 mg tablet 1.25 mg PO DAILY 05/19/20 04/23/23 valacyclovir 500 mg tablet 500 mg PO DAILY 05/19/20 04/23/23 Previous Rx's ?Medication ?Instructions ?Recorded simvastatin 20 mg tablet 20 mg PO BEDTIME #90 tabs 09/06/22 hydrocortisone 2.5 % topical cream 1 appl [place] BEDTIME PRN hemorrhoids 01/22/23 with perineal applicator #30 grams (Proctosol HC) fluoxetine 20 mg tablet 30 mg (1.5 x 20 mg) PO DAILY #135 04/23/23 tabs amoxicillin 875 mg-potassium 1 tab PO BID #14 tabs 10/02/23 clavulanate 125 mg tablet oxycodone 5 mg tablet 5 mg PO Q6H PRN severe pain (scale 10/02/23 score 7-10) #10 tabs Allergies Allergy/AdvReac Type Severity Reaction Status Date / Time No Known Allergies Allergy Verified 10/02/23 11:38 [No Known Allergies*] Review of Systems Review of Systems: Yes all other systems are reviewed and are negative PMFSH Past Medical History Medical History Arthritis Shortness of breath Anxiety Hx of mammogram Basal cell carcinoma Normal pelvic exam Sleep apnea Annual physical exam Palpitations Alopecia Hearing loss Migraine Plantar fasciitis High cholesterol Depression Surgical History Hx of hand surgery H/O colonoscopy History of partial hysterectomy Hx of skin cancer, basal cell History of removal of ovarian cyst History of vaginal hysterectomy Family History Family History Father High cholesterol Osteoarthritis Gout HTN (hypertension) Diabetes mellitus Mother Depression Psoriasis Rheumatoid arthritis Dementia Mental health disorder Brother Substance use disorder Social History Social History Household Members: Spouse Household Members Other:: lives with boyfriend, 25 and 28, 5 yr grandson, works at [employer] Housing: House Alcohol intake: never Patient Tobacco Use Status: Former Tobacco user Quit Date: 34 yrs ago e-Cigarette/Vaping Use: Never Used Current occupational status: employed Cognitive needs: No Hearing needs: No Vision needs: Yes Physical Exam Vital Signs: Vital Signs: Last Vital Signs Temp 98.4 F 10/02/23 14:27 Pulse 77 10/02/23 14:27 Resp 14 10/02/23 14:27 BP 135/64 10/02/23 14:27 Pulse Ox 97 10/02/23 14:27 O2 Del Method Room Air 10/02/23 14:27 BMI result Body Mass Index 23.1 Appearance: Alert. Oriented X3. No acute distress. HEENT: normal inspection CVS: Normal heart rate and rhythm. Pulses normal. Respiratory: No respiratory distress. Skin: Skin warm and dry. Normal skin color. Normal skin turgor. No rashes. Extremities: crush injuries and open wounds of the palmar aspect of the Neuro: Oriented X 3. No motor deficit. No sensory deficit. Medications Administered Discontinued Medications Generic Name Dose Route Start Last Admin Trade Name Isaak PRN Reason Stop Dose Admin Acetaminophen 975 mg 10/02/23 11:36 10/02/23 11:50 Acetaminophen 325 Mg Tablet PO 10/02/23 11:37 975 mg ONCE ONE Administration Amoxicillin/Clavulanate Potassium 875 mg 10/02/23 13:01 10/02/23 13:16 Amoxicillin/Potassium Clav 875 Mg Tablet PO 10/02/23 13:02 875 mg ONCE ONE Administration Oxycodone HCl 5 mg 10/02/23 11:36 10/02/23 11:49 Oxycodone Hcl Immed Release 5 Mg Tablet PO 10/02/23 11:37 5 mg ONCE ONE Administration Medical Decision Making Medical Decision Making MDM Narrative: 62 yo right hand dominant female presenting with crush injury to her right hand. Patient has open wounds to her middle, ring and pinky fingers on her right hand. XR showing fractures of the distal carmen of digits 3 and 4. n There is no nail involvement. Ortho was consulted - outpatient follow up being arranged with Dr. Brownlee. no immediate need for surgical intervention today wounds were cleansed with copious amounts of saline. wound repair performed and tolerated well Dry sterile dressings applied along with finger splints for immobilization dressings to be changed daily stable for d/c home with antibiotics, pain control and close outpatient follow up with hand surgeon. return precautions discussed Differential Diagnosis Differential Diagnoses: The differential diagnosis associated with the presentation includes crush injury, open finger fractures, tendon laceration, vascular compromise, Admission/Observation Consideration of admission/observation: Escalation of care including admission/observation considered Consult Healthcare Provider Management of the patient was discussed with: [employer] [employer] [facility] Danay VINCENT Independent Interpretation I performed an independent interpretation of an: Plain X-Ray Interpretation: distal fractures of the 3rd and 4th fingers on the right hand Radiology Impression Discussion of test interpretation with radiology: I have reviewed the radiologist's reading. Radiologist Impression: EXAMINATION: XR HAND, RIGHT CLINICAL INFORMATION: Crush injury COMPARISON: Right hand 08/03/2019 TECHNIQUE: PA, lateral, and oblique views of the right hand. FINDINGS: There has been healing of the previously seen fracture of the middle phalanx of the second digit. There are new acute fractures involving the distal phalanges of the third and fourth digits. The third digit fracture involves only the terminal tuft. The fourth digit fracture involves the terminal tuft as well as the base lateral corner involving the articular surface. No other fractures are seen. XR/XR hand RT min 3V IMPRESSION: Acute fractures involving the distal phalanges of the third and fourth digits as described above. Independent Historian Clinical information obtained from an independent historian. History obtained from or confirmed by: Spouse External Record Review External record reviewed: Outpatient record Prescription Management I considered prescription management with: Pain Medication and Antibiotic Procedures Laceration Laceration 1: Site: upper extremity Side (If applicable): right Description: irregular Depth: involves muscle layer and involves tendon Local Anesthetic: lidocaine 1% Pre-repair: irrigated extensively Skin layer closed with: nylon Size (cm): 4-0 Number of sutures: 8 (5 simple interrupted sutures on R 4th digit and 3 simple interrupted sutures on R 3 digit) Technique: simple, interrupted Nerve Block Nerve Block 1: Local Anesthetic: lidocaine 1% Amount of anesthesia used (mL): 10 Side: right Nerve Blocks: digital Procedure Successful: Yes Patient Tolerated Procedure: well and no complications Complications: none Orthopedic Splinting/Casting Injury #1: Side: right Upper Extremity Injury Location: finger Upper Extremity Immobilizer: aluminum form splint, finger (other) and Jasvir wrap Critical Care Time Critical Care Time Critical Care Time: Yes Total Critical Care Time: 36 Attestation: I have personally provided critical care time exclusive of time spent on separately billable procedures. Time includes review of lab data, radiology results, discussion with consultants, and monitoring for potential decompensation. Intervention performed as documented. Discharge Plan Discharge Clinical Impression: Open fracture of finger, Crush injury of hand Patient Disposition: Home, Self-Care Instructions: Finger Fracture (ED) Additional Instructions: Follow up with Dr. Blanco's office - call for an appointment today take the prescribed antibiotic as directed - next dose is due before bed tonight 8 stitches were used to close your wounds today You will need your stitches out in 10 days. Do not get wet Keep wound clean and covered. Do not submerge in water If you develop signs of infection including increased pain, swelling, redness or drainage of pus come back to the ER for further evaluation. Prescriptions: New amoxicillin-pot clavulanate 875-125 mg tablet 1 tab PO BID Qty: 14 0RF oxycodone 5 mg tablet 5 mg PO Q6H PRN (Reason: severe pain (scale score 7-10)) Qty: 10 0RF Rx Instructions: Partial Fill upon patient request. No Action simvastatin 20 mg tablet 20 mg PO BEDTIME Qty: 90 3RF valacyclovir 500 mg tablet 500 mg PO DAILY finasteride 5 mg tablet 1.25 mg PO DAILY estradiol 0.5 mg tablet 0.5 mg PO DAILY fluoxetine 20 mg tablet 30 mg PO DAILY Qty: 135 1RF hydrocortisone [Proctosol HC] 2.5 % cream with perineal applicator 1 appl [place] BEDTIME PRN (Reason: hemorrhoids) Qty: 30 3RF Referrals: [facility] [Provider Group] Sofi Castillo MD [Primary Care Provider] - Senait Brownlee MD [Physician] - (open finger fractures) Interventions: ED Discharge Assessment Last Done: 10/02/23 14:27 Discharge Date/Time: 10/02/23 14:29 Print Language: Afghan
[2023-10-02] MEDS: Amoxicillin/Potassium Clav 875 MG TABLET PO (13:16)
[2023-10-02 14:27] VITALS: BP 135/64; PULSE 77; RESP 14; TEMP 36.9; O2SAT 97
== END 2023-10-02 14:29 | disposition home or self-care (01) ==
PROVIDERS: Emergency Provider Emergency Medicine; PCP Internal Medicine
DX: S62.602A Fracture of unspecified phalanx of right middle finger, initial encounter for closed fracture (principal); S62.604A Fracture of unspecified phalanx of right ring finger, initial encounter for closed fracture; M79.641 Pain in right hand; W31.9XXA Contact with unspecified machinery, initial encounter; Y93.9 Activity, unspecified; Y92.9 Unspecified place or not applicable; Y99.0 Civilian activity done for income or pay; Z87.891 Personal history of nicotine dependence
CPT/HCPCS: 12042; 73130; 99283

== ENCOUNTER 2023-10-07 10:06 | Outpatient (REF) | payer OTHER, SELFPAY ==
--- NOTE | ~2023-10-07 | XR_ITS ---
EXAMINATION: XR HAND, RIGHT CLINICAL INFORMATION: Follow-up third and fourth distal phalangeal fractures. COMPARISON: Prior radiographs, most recently 10/02/2023. TECHNIQUE: PA, lateral, and oblique views of the right hand. FINDINGS: Mildly displaced fractures are noted of the third and fourth distal phalanges, in stable alignment. No new callus formation is seen. The proximal and distal carpal rows are intact. No abnormal bone erosion is seen. There is no focal soft tissue swelling, gas or foreign body. XR/XR hand RT min 3V IMPRESSION: Previously seen mildly displaced fractures of the right third and fourth distal phalanges are redemonstrated in stable alignment. No significant new callus formation is seen.
== END 2023-10-07 10:07 | disposition home or self-care (01) ==
LOC: HO.HOSX 10:06
PROVIDERS: Visit Provider Orthopaedic Surgery
DX: S62.634A Displaced fracture of distal phalanx of right ring finger, initial encounter for closed fracture (principal); W31.9XXA Contact with unspecified machinery, initial encounter; Y92.69 Other specified industrial and construction area as the place of occurrence of the external cause; S62.636A Displaced fracture of distal phalanx of right little finger, initial encounter for closed fracture; W31.89XA Contact with other specified machinery, initial encounter; Y92.63 Factory as the place of occurrence of the external cause; Y99.0 Civilian activity done for income or pay
CPT/HCPCS: 26750; 73130; 99202

== ENCOUNTER 2023-10-07 13:11 | Outpatient (AMB) | payer OTHER, SELFPAY ==
--- NOTE | 2023-10-07 13:31 | A.OFFVIS_ITS ---
Intake Vital Signs 10/07/23 13:32 Height 5 ft 5 in Weight 139 lb BMI 23.1 Intake Visit Reasons: F/C W/C crush injury 3rd and 4th digits 10/02/23 Intake Note: Marjorie 62 yr old right hand dominant female presents today for her W/C crush injury to her right hand on 10/02/23. 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 States she was holding a rag that got sucked into machine, pulling her hand along with it and subsequently crushing her 3rd and 4th digits. Her hand was stuck in there for approximately 5 minutes until was able to get removed. She sustained wounds to the 3rd and 4th digits and a skin flap to the pinky finger, all on the palmar side of the hand. Seen same day in ED where her lacerations were sutures and placed in splint. Currently states she has minimal pain and is taking oxycodone as needed. Allergies No Known Allergies [No Known Allergies*] Allergy (Verified 10/07/23 13:37) HPI F/C W/C crush injury 3rd and 4th digits 10/02/23 HPI Details Marjorie is a 62 year old right hand dominant woman who presents for a right middle & ring finger crush injury, DOI: 10/04/23. This is a work-related injury. She says her hand was pulled into a rolling machine while at work, and was stuck in the machine for ~5 minutes before being removed. She was seen in the ED on the same day where her wounds were cleaned, sutured, & splinted, and she was placed on a course of Abx. She presents today saying she has minimal pain. She has a hx of a right index finger fracture, which was managed surgically. She is taking her prescribed Oxycodone prn PFSH Medical History Arthritis Shortness of breath Anxiety Hx of mammogram Basal cell carcinoma Normal pelvic exam Sleep apnea Annual physical exam Palpitations Alopecia Hearing loss Migraine Plantar fasciitis High cholesterol Depression Surgical History Hx of hand surgery H/O colonoscopy History of partial hysterectomy Hx of skin cancer, basal cell History of removal of ovarian cyst History of vaginal hysterectomy Family History Father High cholesterol Osteoarthritis Gout HTN (hypertension) Diabetes mellitus Mother Depression Psoriasis Rheumatoid arthritis Dementia Mental health disorder Brother Substance use disorder Social History (Updated 10/07/23 @ 13:37 by ADRIA Pickens) Household Members: Spouse Household Members Other:: lives with boyfriend, 25 and 28, 5 yr grandson, works at [employer] Housing: House Alcohol intake: never Patient Tobacco Use Status: Former Tobacco user Quit Date: 34 yrs ago e-Cigarette/Vaping Use: Never Used Current occupational status: employed 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 Cognitive needs: No Hearing needs: No Vision needs: Yes Review of Systems Const All systems reviewed & are unremarkable except as noted in HPI and below Physical Exam Vital Signs: BMI result Body Mass Index 23.1 Const General: cooperative, healthy appearing and no acute distress Orientation/consciousness: patient oriented x3 HEENT Head: Yes normocephalic and Yes atraumatic Eyes EOM: EOMs intact bilaterally Resp Effort & Inspection: normal respiratory effort and able to speak in complete sentences Cardio Jugular venous distension: no JVD Skin General skin exam: turgor normal Rashes: no rashes Neuro General: patient oriented x3 Extrem Other: Evaluation of Right Upper Extremity: The patient is alert, oriented, and in no acute distress Neuro: She says she has sensation to the tips of all digits but isn't quite sure if it is normal. Vascular: Cap refill brisk ROM: With encouragement she could make a fist and extend all her digits She could weakly demonstrate a small amount of DIP joint ROM of the middle, ring, and small fingers Good active PIP joint flexion Very mild ulnar deviation of the distal aspect of the ring finger She does have some swelling and resolving ecchymosis in the fingers. Volar lacerations over pad and DIP flexion creases of middle & ring fingers Smaller laceration over pad of small finger Sutures in place for the middle & ring finger lacerations The wounds appear to be healing with some mild serosanguineous drainage but no evidence of infection at present. Radiographs: 3 views of the right hand were taken & viewed by me today in clinic. They show a distal phalanx tuft fracture of the middle finger, non-displaced. She also has a ring finger tuft fracture, with some mild ulnar displacement. There is a small finger distal phalanx fracture, non-displaced, best seen on the lateral view. Psych Appearance: grossly normal Affect: normal affect Attitude: cooperative Office Procedures Fracture Care Details: Fractures of the distal phalanxes 74217 x 3 Fracture Billing Code: Fracture Billing Code Assessment & Plan Assessment & Plan (1) Closed fracture of tuft of distal phalanx of right middle finger: Code(s): S62.632A - Displaced fracture of distal phalanx of right middle finger, initial encounter for closed fracture (2) Closed fracture of tuft of distal phalanx of right ring finger: Code(s): S62.634A - Displaced fracture of distal phalanx of right ring finger, initial encounter for closed fracture (3) Fracture of distal phalanx of right little finger: Code(s): S62.636A - Displaced fracture of distal phalanx of right little finger, initial encounter for closed fracture (4) History of atrial fibrillation: Comment: Negative Holter and echo 09/19 Code(s): Z86.79 - Personal history of other diseases of the circulatory system Plan Assessment & Plan: 1. Right middle finger distal phalanx tuft fracture, non-displaced 2. Right ring finger tuft fracture, with mild ulnar displacement 3. Right small finger distal phalanx fracture, non-displaced S/P crush injury at work DOI: 10/04/23 This is a worker's comp visit I educated her about this condition I discussed operative and non-operative treatment options I think this can be managed non-operatively She will continue to take her Abx as instructed I explained the signs and symptoms of infection, if the patient develops any new or worsening erythema, drainage, pain, or warmth they should contact the clinic or attend the ED. She was fitted for [ ] for her ring finger, to be worn for the next [ ] weeks I discussed activity modification, she will work on gentle ROM exercises at home, out of her splint She is to lift nothing heavier than a cellphone for the next 4 weeks She was given a note for work saying she will return to work on light duty at this time She will follow up next week for a wound check and possible suture removal Please note that greater than 30 minutes was spent with this patient going over the history, evaluating the patient and radiographs, formulating possible treatment options, discussing them with the patient, and documenting the visit. Scribed for Senait Brownlee MD by Antwan George, medical director/head team physician, on 10/07/23 at 1:55 PM, EST. Orders: Orders XR hand RT min 3V Today M79.641 - Pain in right hand Coding Level of Care Code New Pt Level 4 (09041) Diagnoses Closed fracture of tuft of distal phalanx of right middle finger S62.632A Closed fracture of tuft of distal phalanx of right ring finger S62.634A Fracture of distal phalanx of right little finger S62.636A History of atrial fibrillation Z86.79 CPT Codes Fracture Care - Fracture Billing Code: Fracture Billing Code ([id number])
[2023-10-07 13:32] VITALS: BMI 23.1
== END 2023-10-07 14:39 | disposition home or self-care (01) ==
PROVIDERS: PCP Internal Medicine; Visit Provider Orthopaedic Surgery
DX: S62.663A Nondisplaced fracture of distal phalanx of left middle finger, initial encounter for closed fracture (principal); S62.634A Displaced fracture of distal phalanx of right ring finger, initial encounter for closed fracture; S62.666A Nondisplaced fracture of distal phalanx of right little finger, initial encounter for closed fracture; Z86.79 Personal history of other diseases of the circulatory system
CPT/HCPCS: 26750; 99204

== ENCOUNTER 2023-10-14 09:06 | Outpatient (AMB) | payer OTHER, SELFPAY ==
[2023-10-14 09:16] VITALS: BMI 23.1
--- NOTE | 2023-10-14 09:16 | MHC.OFFVIS ---
Intake Vital Signs 10/14/23 09:16 Height 5 ft 5 in Weight 139 lb BMI 23.1 Intake Visit Reasons: ov-W/C crush injury 3rd and 4th digits removal Intake Note: Marjorie 62 yr old female presents today for her follow up visit for her W/C crush injury to 3rd and 4th digits for sutures removal and wound check. States she has continue to do daily dressing changes and is looking better. Patient mentioned she has more sensation on her 4th DIP than her 3rd DIP. Allergies No Known Allergies [No Known Allergies*] Allergy (Verified 10/14/23 09:27) HPI ov-W/C crush injury 3rd and 4th digits removal HPI Details Marjorie is a 62 year old right hand dominant woman who returns for a wound check of her right middle, ring, and small finger fractures, DOI: 10/04/23. This is a work-related injury. She says her hand was pulled into a rolling machine while at work, and was stuck in the machine for ~5 minutes before being removed. She presents today saying she has minimal pain, and she has been doing daily dressing changes at home. She says she has some slight drainage from her ring finger at times, but she denies any symptoms of infection. She says she feels some decreased sensation to her middle fingertip, unchanged from prior, but she has normal sensation to her ring & small fingers. She says she has been splinting & pulling at her ring finger to straighten it out, which she says has been working. She has a hx of a right index finger fracture, which was managed surgically. [facility] Medical History Arthritis Shortness of breath Anxiety Hx of mammogram Basal cell carcinoma Normal pelvic exam Sleep apnea Annual physical exam Palpitations Alopecia Hearing loss Migraine Plantar fasciitis High cholesterol Depression Surgical History Hx of hand surgery H/O colonoscopy History of partial hysterectomy Hx of skin cancer, basal cell History of removal of ovarian cyst History of vaginal hysterectomy Family History Father High cholesterol Osteoarthritis Gout HTN (hypertension) Diabetes mellitus Mother Depression Psoriasis Rheumatoid arthritis Dementia Mental health disorder Brother Substance use disorder Social History Household Members: Spouse Household Members Other:: lives with boyfriend, 25 and 28, 5 yr grandson, works at [employer] Housing: House Alcohol intake: never Patient Tobacco Use Status: Former Tobacco user Quit Date: 34 yrs ago e-Cigarette/Vaping Use: Never Used Current occupational status: employed 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 Most sutures removed and Steri-Strips applied She has some mild serosanguinous drainage from her ring finger. She has decreased sensation to the radial digital nerve distribution of the middle finger. Normal sensation to all other digits Cap refill is brisk ROM She biometrics instructor weakly bring her fingertips to her palm and back out She could demonstrate weak but present FDP & FDS tendon function in all digits, improved from prior She could demonstrate a small amount of DIP joint ROM of the middle, ring, and small fingers Good active PIP joint flexion She appears to have corrected the ulnar deviation of her ring finger with splinting. She does have some swelling and resolving ecchymosis in the fingers. Volar lacerations over pad and DIP flexion creases of middle & ring fingers Smaller laceration over pad of small finger Psych Appearance: grossly normal Affect: normal affect Attitude: cooperative Assessment & Plan Assessment & Plan (1) Closed fracture of tuft of distal phalanx of right middle finger: Code(s): S62.632A - Displaced fracture of distal phalanx of right middle finger, initial encounter for closed fracture (2) Closed fracture of tuft of distal phalanx of right ring finger: Code(s): S62.634A - Displaced fracture of distal phalanx of right ring finger, initial encounter for closed fracture (3) Fracture of distal phalanx of right little finger: Code(s): S62.636A - Displaced fracture of distal phalanx of right little finger, initial encounter for closed fracture (4) History of atrial fibrillation: Comment: Negative Holter and echo 09/19 Code(s): Z86.79 - Personal history of other diseases of the circulatory system Plan Assessment & Plan: 1. Right middle finger distal phalanx tuft fracture, non-displaced 2. Right ring finger tuft fracture, with mild ulnar displacement 3. Right small finger distal phalanx fracture, non-displaced S/P crush injury at work DOI: 10/04/23 This is a worker's comp visit I educated her about this condition Most sutures removed today in clinic, one suture remaining in both the middle & ring fingers I discussed operative and non-operative treatment options She has completed her course of Abx and has been performing daily dressing changes. As she has some mild drainage still, out of an abundance of caution I ordered a 7-day course of Augmentin She will begin to wash this with soap & water as well as in the shower I discussed activity modification, she will continue to work on gentle ROM exercises at home She is to lift nothing heavier than a cellphone for the next 4 weeks She will follow up next week with a PA for a wound check & suture removal She will follow up with me in 3 weeks to check her ROM and see how she is doing Scribed for Senait Brownlee MD by Antwan George, medical coding auditor, on 10/14/23 at 9:40 AM, EST. Medications: New amoxicillin-pot clavulanate 875-125 mg 1 tab PO Q12H 14 tabs 0RF Coding Level of Care Code Global (79515) Diagnoses Closed fracture of tuft of distal phalanx of right middle finger S62.632A Closed fracture of tuft of distal phalanx of right ring finger S62.634A Fracture of distal phalanx of right little finger S62.636A History of atrial fibrillation Z86.79
== END 2023-10-14 10:07 | disposition home or self-care (01) ==
PROVIDERS: PCP Internal Medicine; Visit Provider Orthopaedic Surgery
DX: S62.632A Displaced fracture of distal phalanx of right middle finger, initial encounter for closed fracture (principal); S62.634A Displaced fracture of distal phalanx of right ring finger, initial encounter for closed fracture; S62.636A Displaced fracture of distal phalanx of right little finger, initial encounter for closed fracture; Z86.79 Personal history of other diseases of the circulatory system
CPT/HCPCS: 99024

== ENCOUNTER → 2023-10-14 09:06 | Outpatient (BNVA) | payer OTHER, SELFPAY | PROVIDERS: PCP Internal Medicine; Visit Provider Orthopaedic Surgery | DX: S62.632D Displaced fracture of distal phalanx of right middle finger, subsequent encounter for fracture with routine healing (principal); S62.634D Displaced fracture of distal phalanx of right ring finger, subsequent encounter for fracture with routine healing; S62.636D Displaced fracture of distal phalanx of right little finger, subsequent encounter for fracture with routine healing; Z86.79 Personal history of other diseases of the circulatory system | CPT/HCPCS: 99212 ==

== ENCOUNTER 2023-10-21 09:45 | Outpatient (AMB) | payer OTHER, SELFPAY ==
--- NOTE | 2023-10-21 09:58 | MHC.OFFVIS ---
Intake Visit Reasons: ov-W/C crush injury 3rd and 4th digits removal Intake Note: Marjorie is a 62 year old right hand dominant female presents today for remaining suture removal s/p WC crush injury of 3rd and 4th digits DOI: 10/04/23. Patient is experiencing itching and redness where her bandages are on her 3rd and 4th digits. Allergies No Known Allergies [No Known Allergies*] Allergy (Verified 10/21/23 10:09) HPI HPI ov-W/C crush injury 3rd and 4th digits removal: Details: Marjorie is a 62 year old right hand dominant woman who returns for a wound check of her right middle, ring, and small finger fractures, DOI: 10/02/23. This is a work-related injury. She says her hand was pulled into a rolling machine while at work, and was stuck in the machine for ~5 minutes before being removed. She presents today saying she has minimal pain, and has completed her course of Abx. She says she feels some decreased sensation to her middle fingertip, unchanged from prior, but she has normal sensation to her ring & small fingers. She says she has been splinting & pulling at her ring finger to straighten it out, which she says has been working. She says she had returned to work on 10/06/23 on light duty. She says she has been wrapping her fingers to keep them clean & padded in case she bumps into something. 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 She has a hx of a right index finger fracture, which was managed surgically. [facility] Medical History Arthritis Shortness of breath Anxiety Hx of mammogram Basal cell carcinoma Normal pelvic exam Sleep apnea Annual physical exam Palpitations Alopecia Hearing loss Migraine Plantar fasciitis High cholesterol Depression Surgical History Hx of hand surgery H/O colonoscopy History of partial hysterectomy Hx of skin cancer, basal cell History of removal of ovarian cyst History of vaginal hysterectomy Family History Father High cholesterol Osteoarthritis Gout HTN (hypertension) Diabetes mellitus Mother Depression Psoriasis Rheumatoid arthritis Dementia Mental health disorder Brother Substance use disorder Social History Household Members: Spouse Household Members Other:: lives with boyfriend, 25 and 28, 5 yr grandson, works at [employer] shop Housing: House Alcohol intake: never Patient Tobacco Use Status: Former Tobacco user Quit Date: 34 yrs ago e-Cigarette/Vaping Use: Never Used Current occupational status: employed 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 Remaining sutures removed today She has decreased sensation to the radial digital nerve distribution of the middle finger. Normal sensation to all other digits Cap refill is brisk ROM She can weakly bring her fingers closed to a fist and back into extension She appears to have corrected the ulnar deviation of her ring finger with splinting. She does have some improving swelling in the fingers. Fracture sites 0 to minimally tender Radiographs: 3 views of the right hand were taken & viewed by me today in clinic. They show a distal phalanx tuft fracture of the middle finger, non-displaced, with improved fracture alignment. She also has a ring finger tuft fracture, with improved fracture alignment. There is a small finger distal phalanx fracture, non-displaced, best seen on the lateral view. Psych Appearance: grossly normal Affect: normal affect Attitude: cooperative Assessment & Plan Assessment & Plan (1) Closed fracture of tuft of distal phalanx of right middle finger: Code(s): S62.632A - Displaced fracture of distal phalanx of right middle finger, initial encounter for closed fracture Category: Medical (2) Closed fracture of tuft of distal phalanx of right ring finger: Code(s): S62.634A - Displaced fracture of distal phalanx of right ring finger, initial encounter for closed fracture Category: Medical (3) Fracture of distal phalanx of right little finger: Code(s): S62.636A - Displaced fracture of distal phalanx of right little finger, initial encounter for closed fracture Category: Medical Plan Assessment & Plan: 1. Right middle finger distal phalanx tuft fracture, non-displaced 2. Right ring finger tuft fracture, now without ulnar displacement 3. Right small finger distal phalanx fracture, non-displaced S/P crush injury at work DOI: 10/04/23 This is a worker's comp visit I educated her about this condition She appears to be healing very well. Remaining sutures removed today in clinic She has completed her course of Abx and has been performing daily dressing changes, as well as washing in the shower. She will discontinue her finger splint at this time I discussed activity modification, she will continue to work on ROM exercises at home, with a focus on making a fist She is to lift nothing heavier than a cellphone for the next 2 weeks She will follow up with me in 4 weeks for a ROM check, no radiographs Scribed for Senait Brownlee MD by Antwan George, medical technologist prn, on 10/21/23 at 10:25 AM, EST. Orders: Orders XR hand RT min 3V Today M79.641 - Pain in right hand Scribe Plan - Not visible on output: Scribed for Senait Brownlee MD by Antwan George medical technologist prn, on [ ] at [ ], EST.
== END 2023-10-21 10:39 | disposition home or self-care (01) ==
PROVIDERS: PCP Internal Medicine; Visit Provider Orthopaedic Surgery
DX: S62.632A Displaced fracture of distal phalanx of right middle finger, initial encounter for closed fracture (principal); S62.634A Displaced fracture of distal phalanx of right ring finger, initial encounter for closed fracture; S62.636A Displaced fracture of distal phalanx of right little finger, initial encounter for closed fracture
CPT/HCPCS: 99024

== ENCOUNTER 2023-10-21 09:55 | Outpatient (REF) | payer OTHER, SELFPAY ==
--- NOTE | ~2023-10-21 | XR_ITS ---
EXAMINATION: XR HAND, RIGHT CLINICAL INFORMATION: Pain in right hand. COMPARISON: 10/07/2023 and dating back to 08/03/2019. TECHNIQUE: 4 views of the right hand. FINDINGS: Moderate degenerative changes in the first carpometacarpal joint with joint space narrowing and hypertrophic change. Redemonstration of mildly displaced oblique fracture of the distal phalanx of the third digit in stable alignment. Redemonstration of displaced fracture of the tip of the distal phalanx as well as base of the distal phalanx of the fourth digit, similar in alignment. There has been no significant interval callus formation. There is a nondisplaced fracture of the distal tip of the distal phalanx of the fifth digit. XR/XR hand RT min 3V IMPRESSION: Fractures of the distal phalanges of the third, fourth and fifth digits as detailed above. This study was presented today 10/27/2023 for interpretation. PSA staff will provide results to referring provider at this time.
== END 2023-10-21 09:56 | disposition home or self-care (01) ==
LOC: HO.HOSX 09:55
PROVIDERS: Visit Provider Orthopaedic Surgery
DX: Z89.021 Acquired absence of right finger(s) (principal)
CPT/HCPCS: 73130; 99212

== ENCOUNTER 2023-11-25 08:35 | Outpatient (AMB) | payer OTHER, SELFPAY ==
--- NOTE | 2023-11-25 08:39 | MHC.OFFVIS ---
Intake Visit Reasons: OV W/C crush inj 3,4th digits removal wound check Intake Note: Marjorie is a 62 year old right hand dominant female presents today for a ROM check for s/p WC crush injury of 3rd and 4th digits DOI: 10/04/23. Patient reports she is finding improvements in her ROM. She states that she is having trouble with scaring in her 3rd and 4th finger. Patient expresses that she has some stiffness every morning. Allergies No Known Allergies [No Known Allergies*] Allergy (Verified 11/25/23 08:41) HPI HPI OV W/C crush inj 3,4th digits removal wound check: Details: Marjorie is a 62 year old right hand dominant woman who returns for a ROM check of her right middle, ring, and small finger distal phalanx tuft fractures, DOI: 10/02/23. This is a work-related injury. She says her hand was pulled into a rolling machine while at work, and was stuck in the machine for ~5 minutes before being removed. The patient says she has been doing well and has been working to improve her range of motion. She reports still having some stiffness in her fingers when she wakes up, but this improved throughout the day. She is concerned about the scarring of her fingers. She has not done any OT. She says she feels some decreased sensation to her middle fingertip, unchanged from prior, but she has normal sensation to her ring & small fingers. She says she has been working full duty a work since her last appointment. 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 She has a hx of a right index finger fracture, which was managed surgically. [facility] Medical History Arthritis Shortness of breath Anxiety Hx of mammogram Basal cell carcinoma Normal pelvic exam Sleep apnea Annual physical exam Palpitations Alopecia Hearing loss Migraine Plantar fasciitis High cholesterol Depression Surgical History Hx of hand surgery H/O colonoscopy History of partial hysterectomy Hx of skin cancer, basal cell History of removal of ovarian cyst History of vaginal hysterectomy Family History Father High cholesterol Osteoarthritis Gout HTN (hypertension) Diabetes mellitus Mother Depression Psoriasis Rheumatoid arthritis Dementia Mental health disorder Brother Substance use disorder Social History Household Members: Spouse Household Members Other:: lives with boyfriend, 25 and 28, 5 yr grandson, works at [employer] Housing: House Alcohol intake: never Patient Tobacco Use Status: Former Tobacco user Quit Date: 34 yrs ago e-Cigarette/Vaping Use: Never Used Current occupational status: employed 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 This is an improvement. Vascular: Cap refill brisk ROM: She can make a fist and extend all her digits Good active flexion at the DIP joints of the middle, ring, and small fingers No flexion at the index finger DIP joint, from an old injury All wounds appear to be well healed. Mild swelling in the middle & ring fingers compared to opposite hand Her nails appear to be growing appropriately, and the subungual hematomas are growing out with the nails. Psych Appearance: grossly normal Affect: normal affect Attitude: cooperative Assessment & Plan Assessment & Plan (1) Closed fracture of tuft of distal phalanx of right middle finger: Code(s): S62.632A - Displaced fracture of distal phalanx of right middle finger, initial encounter for closed fracture Category: Medical (2) Closed fracture of tuft of distal phalanx of right ring finger: Code(s): S62.634A - Displaced fracture of distal phalanx of right ring finger, initial encounter for closed fracture Category: Medical (3) Fracture of distal phalanx of right little finger: Code(s): S62.636A - Displaced fracture of distal phalanx of right little finger, initial encounter for closed fracture Category: Medical Plan Assessment & Plan: 1. Right middle finger distal phalanx tuft fracture, non-displaced 2. Right ring finger tuft fracture, now without ulnar displacement 3. Right small finger distal phalanx fracture, non-displaced S/P crush injury at work DOI: 10/04/23 This is a worker's comp visit I educated her about this condition She appears to be well-healed I discussed activity modification, she will continue to work on ROM exercises at home, with a focus on making a fist She can return to all activities as normal, and patient reports that she has been working at full duty. 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 If she did require a note it bo say return to work on full duty, with time off for OT. She will follow up in 6 weeks for a ROM check. Scribed for Senait Brownlee MD by Antwan George, biomedical technician, on 11/25/23 at 9:00 AM, EST. Orders: Orders OT Evaluation and Treatment Today S62.632A - Displaced fracture of distal phalanx of right middle finger, initial encounter for closed fracture, S62.634A - Displaced fracture of distal phalanx of right ring finger, initial encounter for closed fracture, S62.636A - Displaced fracture of distal phalanx of right little finger, initial encounter for closed fracture Coding Level of Care Code Global (03712) Diagnoses Closed fracture of tuft of distal phalanx of right middle finger S62.632A Closed fracture of tuft of distal phalanx of right ring finger S62.634A Fracture of distal phalanx of right little finger S62.636A
== END 2023-11-25 09:32 | disposition home or self-care (01) ==
PROVIDERS: PCP Internal Medicine; Visit Provider Orthopaedic Surgery
DX: S62.632A Displaced fracture of distal phalanx of right middle finger, initial encounter for closed fracture (principal); S62.634A Displaced fracture of distal phalanx of right ring finger, initial encounter for closed fracture; S62.636A Displaced fracture of distal phalanx of right little finger, initial encounter for closed fracture
CPT/HCPCS: 99024

== ENCOUNTER → 2023-11-25 08:35 | Outpatient (BNVA) | payer OTHER, SELFPAY | PROVIDERS: PCP Internal Medicine; Visit Provider Orthopaedic Surgery | DX: S62.632D Displaced fracture of distal phalanx of right middle finger, subsequent encounter for fracture with routine healing (principal); S62.634D Displaced fracture of distal phalanx of right ring finger, subsequent encounter for fracture with routine healing; S62.636D Displaced fracture of distal phalanx of right little finger, subsequent encounter for fracture with routine healing | CPT/HCPCS: 99212 ==

== ENCOUNTER 2024-01-06 08:51 | Outpatient (AMB) | payer OTHER, SELFPAY ==
--- NOTE | 2024-01-06 08:54 | MHC.OFFVIS ---
Vital Signs 01/06/24 09:04 Height 5 ft 5 in Weight 139 lb BMI 23.1 Handedness Right Intake Visit Reasons: OV W/C crush inj 3,4th digits removal Intake Note: Marjorie is a 62 year old right hand dominant female presents today for a follow up s/p WC crush injury of 3rd and 4th digits DOI: 10/04/23. Patient reports she still has stiffness followed by mild pain when forcing her fingers down to make a closed fist. She has completed 4 OT visits, she expresses the first 3 went well but then she had to cancel the following two weeks of OT due to swelling, warmth and redness at the DIP of her 3rd and 4th digit. She is unsure how this occurred and believes she may have overworked her fingers. She will be going to her last OT visit tomorrow. Allergies No Known Allergies [No Known Allergies*] Allergy (Verified 01/06/24 09:04) HPI HPI OV W/C crush inj 3,4th digits removal: Details: Marjorie is a 62 year old right hand dominant woman who returns for a ROM check of her right middle, ring, and small finger distal phalanx tuft fractures, DOI: 10/02/23. This is a work-related injury. She says she has been doing well and has been working to improve her ROM both at home and with OT hand therapy. She and her occupational therapist think that she may have overdone it and she demonstrated that her joint swelling & pain would occur when she would place her PIP & DIP joints into hyperflexion, which she did to try to get even more motion.. Since she has stopped doing this her swelling & pain have improved.? She has her last OT appointment scheduled for 01/07/24. She has happy with the improvement that she has seen in her hand, and she no longer has pain. She now feels like she has normal sensation to all fingertips though she still has some persistent numbness over the volar middle phalanx aspect of the middle finger where her wound was.. She says she has been working full duty at work since her last appointment. 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 She has a hx of a right index finger fracture, which was managed surgically. [facility] Medical History Arthritis Shortness of breath Anxiety Hx of mammogram Basal cell carcinoma Normal pelvic exam Sleep apnea Annual physical exam Palpitations Alopecia Hearing loss Migraine Plantar fasciitis High cholesterol Depression Surgical History Hx of hand surgery H/O colonoscopy History of partial hysterectomy Hx of skin cancer, basal cell History of removal of ovarian cyst History of vaginal hysterectomy Family History Father High cholesterol Osteoarthritis Gout HTN (hypertension) Diabetes mellitus Mother Depression Psoriasis Rheumatoid arthritis Dementia Mental health disorder Brother Substance use disorder Social History Household Members: Spouse Household Members Other:: lives with boyfriend, 25 and 28, 5 yr grandson, works at [employer] Housing: House Alcohol intake: never Patient Tobacco Use Status: Former Tobacco user e-Cigarette/Vaping Use: Never Used Current occupational status: employed 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 This is an improvement. Vascular: Cap refill brisk ROM: She can make a fist and extend all her digits, including the DIP joints of her middle, ring, and small fingers No flexion at the index finger DIP joint, from an old injury All fracture sites non-tender to firm palpation. All fingers are well-aligned Her ring finger nail appear to be growing appropriately, and is now ~[facility] grown out. and the subungual hematoma is growing out with the nails. Psych Appearance: grossly normal Affect: normal affect Attitude: cooperative Assessment & Plan Assessment & Plan (1) Closed fracture of tuft of distal phalanx of right middle finger: Code(s): S62.632A - Displaced fracture of distal phalanx of right middle finger, initial encounter for closed fracture Category: Medical (2) Closed fracture of tuft of distal phalanx of right ring finger: Code(s): S62.634A - Displaced fracture of distal phalanx of right ring finger, initial encounter for closed fracture Category: Medical (3) Fracture of distal phalanx of right little finger: Code(s): S62.636A - Displaced fracture of distal phalanx of right little finger, initial encounter for closed fracture Category: Medical Plan Assessment & Plan: 1. Right middle finger distal phalanx tuft fracture, non-displaced 2. Right ring finger tuft fracture, now without ulnar displacement 3. Right small finger distal phalanx fracture, non-displaced S/P crush injury at work DOI: 10/04/23 This is a worker's comp visit I educated her about this condition She appears to be well-healed I discussed activity modification, she will continue to work on ROM exercises at home, with a focus on making a fist She will continue to attend OT hand therapy to work on ROM and normalizing hand function. Her last appointment is 01/07/24 She can continue all activities as normal, but she should be mindful to not overuse her hand at times if she is concerned about intermittent swelling. 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 If she did require a note it bo say return to work on full duty, with time off for OT. She will follow up prn Scribed for Senait Brownlee MD by Antwan George bacteriologist medical, on 01/06/24 at 9:45 AM, EST. Coding Level of Care Code Global (34833) Diagnoses Closed fracture of tuft of distal phalanx of right middle finger S62.632A Closed fracture of tuft of distal phalanx of right ring finger S62.634A Fracture of distal phalanx of right little finger S62.636A
[2024-01-06 09:04] VITALS: BMI 23.1
== END 2024-01-06 09:53 | disposition home or self-care (01) ==
PROVIDERS: PCP Internal Medicine; Visit Provider Orthopaedic Surgery
DX: S62.632A Displaced fracture of distal phalanx of right middle finger, initial encounter for closed fracture (principal); S62.634A Displaced fracture of distal phalanx of right ring finger, initial encounter for closed fracture; S62.636A Displaced fracture of distal phalanx of right little finger, initial encounter for closed fracture
CPT/HCPCS: 99213

== ENCOUNTER → 2024-01-06 08:51 | Outpatient (BNVA) | payer OTHER, SELFPAY | PROVIDERS: PCP Internal Medicine; Visit Provider Orthopaedic Surgery | DX: S62.632D Displaced fracture of distal phalanx of right middle finger, subsequent encounter for fracture with routine healing (principal); S62.634D Displaced fracture of distal phalanx of right ring finger, subsequent encounter for fracture with routine healing; S62.636D Displaced fracture of distal phalanx of right little finger, subsequent encounter for fracture with routine healing | CPT/HCPCS: 99212 ==

== ENCOUNTER 2024-01-07 08:00 | Outpatient (RCR) | payer OTHER, SELFPAY ==
--- NOTE | 2023-12-03 14:27 | MHC.OT.EP ---
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 She reports she was splinting her MF to her RF to increase appropriate healing. She reports she has been actively trying to regain ROM in her dominant hand. She had a previous injury in 2019 of her R IF which also has decreased AROM (the injury required surgery and external pins to repair the digit) Pt has been referred to skilled OT therapy today for increased AROM, strength, and functional use of her R hand Frequency and Duration: The patient will be seen 1 x a week for 4 weeks Short Term Goals: Pt will be compliant w/ her HEP Pt will be compliant w/ micropore tape to decrease scar tissue adhesions Pt will report 0/10 pain Greenhouse Worker Goals: Pt will make a composite fist DASH Score will be less than 15% Pt will report being able to grasp/hold knife for cutting paper at work Treatment Plan: Therapeutic Exercise Therapeutic Activity Home Exercise Program Splinting Neuro Re-ed Patient Education Desensitization/Sensory Re-ed Edema Control ADL Training Ultrasound NMES Iontophoresis Paraffin Fluidotherapy MHP Cold Packs Joint Mobilization Soft Tissue Mobilization Kinesiotaping Other (see comments) Electronically Signed By: Carmella Ferreira OTR/L Please Sign and return to therapist. Thank you once again for your referral.
== END 2024-01-07 08:21 | disposition home or self-care (01) ==
LOC: HO.OT 08:00
PROVIDERS: PCP Internal Medicine; Visit Provider Orthopaedic Surgery
DX: S62.636D Displaced fracture of distal phalanx of right little finger, subsequent encounter for fracture with routine healing (principal); S62.634D Displaced fracture of distal phalanx of right ring finger, subsequent encounter for fracture with routine healing
CPT/HCPCS: 97035; 97110; 97140; 97165; 97535

== ENCOUNTER 2024-02-17 12:45 | Outpatient (AMB) | payer OTHER, SELFPAY ==
[2024-02-17 12:56] VITALS: BP 110/70; PULSE 85; O2SAT 98; BMI 23.8
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
== END 2024-02-17 13:55 | disposition home or self-care (01) ==
PROVIDERS: PCP Internal Medicine; Visit Provider Internal Medicine
DX: Z00.00 Encounter for general adult medical examination without abnormal findings (principal); Z78.0 Asymptomatic menopausal state; Z98.890 Other specified postprocedural states; E78.00 Pure hypercholesterolemia, unspecified; F41.9 Anxiety disorder, unspecified
CPT/HCPCS: 99397

== ENCOUNTER 2024-02-18 07:58 | Outpatient (REF) | payer OTHER, SELFPAY ==
[2024-02-18 11:29] LABS: MANUAL DIFF FLAG NO
[2024-02-18 11:34] LABS: Basophils Absolute Auto 0.1 X10*3/uL (0.0-0.2); Basophils Percent Auto 1.3 % (0-2); Eosinophils Absolute Auto 0.1 X10*3/uL (0.0-0.4); Eosinophils Percent Auto 2.4 % (0-4); Hematocrit 41.2 % (37.0-47.0); Hemoglobin 12.9 g/dl (12.0-16.0); Imm Gran Abs Auto 0.03 X10*3/uL (0.00-0.03); Imm Gran Pct Auto 0.6 % (0.0-0.4); Lymphocytes Absolute Auto 2.5 X10*3/uL (1.2-4.9); Lymphocytes Percent Auto 54.6 % (20-40); Mean Corpuscular HGB Conc 31.3 g/dl (31.0-35.0); Mean Corpuscular Hemoglobin 32.1 pg (27.0-33.0); Mean Corpuscular Volume 102.5 fL (80.0-98.0); Mean Platelet Volume 10.7 fL (9.4-12.3); Monocytes Absolute Auto 0.4 X10*3/uL (0.1-1.2); Monocytes Percent Auto 9.2 % (2-11); Neutrophils Absolute Auto 1.5 x10*3/uL (2.0-8.3); Neutrophils Percent Auto 31.9 % (45-73); Platelet Count 222 X10*3/uL (160-400); Red Blood Count 4.02 X10*6/uL (4.20-5.50); Red Cell Distribution Width 12.4 % (11.0-16.0); White Blood Count 4.7 X10*3/uL (4.8-10.8)
[2024-02-18 12:39] LABS: Alanine Aminotransferase 13 U/L (0-31); Albumin Level 4.3 g/dL (3.5-5.0); Alkaline Phosphatase 43 U/L (39-117); Anion Gap 10 (12-20); Aspartate Amino Transferase 19 U/L (5-31); Bilirubin Total 0.5 mg/dL (0.0-1.0); Blood Urea Nitrogen 18 mg/dL (9-16); Calcium 9.3 mg/dL (8.4-10.2); Carbon Dioxide 29 mmol/L (22-29); Chloride 105 mmol/L (96-108); Cholesterol 196 mg/dL (<200); Estimated Glomerular Filt Rate > 60; Glucose Fasting 83 mg/dL (60-99); HDL Cholesterol 67 mg/dL (>40); LDL Cholesterol Calculated 108 mg/dL (<100); Potassium 4.4 mmol/L (3.3-5.1); Sodium 140 mmol/L (135-145); Total Protein 6.7 g/dL (6.5-8.0); Triglycerides 105 mg/dL (<150)
[2024-02-18 12:59] LABS: TSH reflex Free T4 1.65 uIU/mL (0.32-4.0); Vitamin D 25-OH Total 46.4 ng/mL (>30)
== END 2024-02-18 07:59 | disposition home or self-care (01) ==
LOC: HO.HMGCLDS 07:58
PROVIDERS: PCP Internal Medicine; Visit Provider Internal Medicine
DX: Z00.00 Encounter for general adult medical examination without abnormal findings (principal); E55.9 Vitamin D deficiency, unspecified; E78.00 Pure hypercholesterolemia, unspecified; Z86.79 Personal history of other diseases of the circulatory system
CPT/HCPCS: 36415; 80053; 80061; 82306; 84443; 85025

== ENCOUNTER 2024-04-01 08:01 | Outpatient (REF) | payer MEDICARE, SELFPAY ==
--- NOTE | ~2024-04-01 | MM_ITS ---
EXAMINATION: BONE DENSITOMETRY CLINICAL INDICATION: Encounter for general adult medical examination without abnormal findings. COMPARISON: This is the patient's baseline examination. TECHNIQUE: Using a [employer]-Share DXA System (software version: 13.1) manufactured by [employer], dual-energy x-ray absorptiometry was performed of the lumbar spine and left hip. The images are of good technical quality. Summary results are attached. FINDINGS: LEFT FEMUR, NECK: BMD 0.809 g/cm2, Z-score -0.1, T-score -1.6, osteopenia. LEFT FEMUR, TOTAL: BMD 0.858 g/cm2, Z-score 0.1, T-score -1.2, osteopenia. AP SPINE L1-L4: BMD 1.110 g/cm2, Z-score 1.1, T-score -0.6, normal. IDENTIFIED RISK FACTORS: Menopause, hysterectomy. HISTORY OF FRACTURE: None listed. MEDICATIONS: Calcium supplements or multivitamin, vitamin D, ERT/SERMS. MM/XR DEXA axial skeleton IMPRESSION: 1. DIAGNOSIS: Osteopenia based on the lowest T-score value of -1.6 in the femoral neck applying World Health Organization criteria. 2. 10-YEAR FRACTURE RISK PREDICTION, FRAX: Not performed in this patient on estrogen or bone building treatments. 3. Treatment Recommendations: NOF guidelines recommend consideration for treatment in postmenopausal women and men age 50 and older presenting with the following: -A hip or vertebral (clinical or morphometric) fracture. -T-score less than or equal to -2.5 at the femoral neck or spine after appropriate evaluation to exclude secondary causes. -Low bone mass at the hip or spine and a 10-year fracture probability by FRAX of greater than or equal to 3% for hip fracture or greater than or equal to 20% for major osteoporotic fracture based on the [place] adapted WHO algorithm. 4. Other Recommendations: All treatment decisions require clinical judgment and consideration of individual patient factors, including patient preferences, comorbidities, previous drug use, risk factors not captured in the FRAX model (e.g. frailty, falls, vitamin D deficiency, increased bone turnover, interval significant decline in bone density) and possible under or overestimation of fracture risk by FRAX. Additional medical evaluation for secondary cause of low bone mineral density may be appropriate. FUTURE SCAN RECOMMENDATION: People with diagnosed cases of osteoporosis or at high risk for fracture should have regular bone mineral density tests. For patients eligible for Medicare, routine testing is allowed once every 2 years. The testing frequency can be increased to one year for patients who have rapidly progressing disease, those who are receiving or discontinuing medical therapy to restore bone mass, or have additional risk factors. Electronically signed by: Grzegorz Dugan MD 04/07/2024 05:11 PM EDT
== END 2024-04-01 08:02 | disposition home or self-care (01) ==
LOC: HO.MAMMO 08:01
PROVIDERS: PCP Internal Medicine; Visit Provider Internal Medicine
DX: Z13.820 Encounter for screening for osteoporosis (principal); Z78.0 Asymptomatic menopausal state
CPT/HCPCS: 77080

== ENCOUNTER 2025-03-01 13:07 | Outpatient (AMB) | payer MEDICARE, SELFPAY ==
--- NOTE | 2025-03-01 13:53 | A.OFFPC_ITS ---
Vital Signs 03/01/25 14:22 Height 5 ft 5 in Weight 142 lb BMI 23.6 BP 110/64 Blood Pressure Location Lt brachial Position Sitting Respiration 18 Pulse 83 Pulse Source Pulse Oximeter Temp 98.3 F Temp Source Oral Pulse Oximetry (%) 98 Oxygen Delivery Method Room Air Intake Visit Reasons: Annual PE Intake Note: Pt is here today for PE. Allergies No Known Allergies (No Known Allergies*) Allergy (Verified 03/01/25 14:23) Medication List - Last Reconciled 03/01/25 by Sofi Castillo MD acetaminophen (Tylenol Extra Strength) 1,000 mg PO Q6H PRN estradiol 0.5 mg PO DAILY finasteride 1.25 mg PO DAILY fluoxetine 20 mg PO DAILY hydrocortisone 2.5% (Proctosol HC) 1 appl [place] BEDTIME PRN simvastatin 20 mg PO BEDTIME tobramycin 0.3% 1 drp ophthalmic (eye) Q4H valacyclovir 500 mg PO DAILY Tobacco use date assessed: 03/01/25 Fall risk assessment: No Falls in past year Last assessed Fall Risk: 03/01/25 Dental Screening Dental Screen Date: 03/01/25 Did you have a dental visit in the last 12 months?: Yes Did you have a dental problem in the last 6 months where you did not have access to dental care?: No Was dental information given to patient?: Patient has dentist HPI Annual PE HPI Details Pt presents for PE. PFSH Medical History Arthritis Shortness of breath Anxiety Hx of mammogram Basal cell carcinoma Normal pelvic exam Sleep apnea Annual physical exam Palpitations Alopecia Hearing loss Migraine Plantar fasciitis High cholesterol Depression Surgical History Hx of hand surgery H/O colonoscopy History of partial hysterectomy Hx of skin cancer, basal cell History of removal of ovarian cyst History of vaginal hysterectomy Family History Father High cholesterol Osteoarthritis Gout HTN (hypertension) Diabetes mellitus Mother Depression Psoriasis Rheumatoid arthritis Dementia Mental health disorder Brother Substance use disorder Social History Household Members: Spouse Household Members Other:: lives with boyfriend, 25 and 28, 5 yr grandson, works at [employer] Housing: House Alcohol intake: never Patient Tobacco Use Status: Former Tobacco user (30 years ) e-Cigarette/Vaping Use: Never Used service: No Current occupational status: employed 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 41350 - PHQ-9 Billing: Patient declined-do not bill Source: Developed by Drs. Hong Lucia, Yudelka Ba, Darrius Gonzales and colleagues, with an educational jamison from [employer]. Thrive Questionnaire Date Thrive assessed: 03/01/25 I am a: Patient What is your living situation today?: I have a steady place to live Within the past 12 months, did the food you bought not last and you didn't have the money to get more?: Never true Within the past 12 months, did you worry whether your food would run out before you got money to buy more?: Never true Do you have trouble paying for medicines?: No Do you have trouble getting transportation to medical appointments?: No Do you have trouble paying your heating and electricity bill?: No Do you have trouble taking care of your child, family member or friend?: No Do you have trouble with day-to-day activities such as bathing, preparing meals, shopping, managing finances, etc.?: No Are you currently unemployed and looking for a job?: No Are you interested in more education?: No Please select the resources that you would like help with: None THRIVE Score: 0 ALFREDITO-7 AMB Questionnaire ALFREDITO-7 Date ALFREDITO - 7 assessed: 03/01/25 Feeling nervous, anxious, or on edge: 0 = Not at all Not being able to stop or control worryin = Not at all Worrying too much about different things: 0 = Not at all Trouble relaxin = Not at all Being so restless that it is hard to sit still: 0 = Not at all Becoming easily annoyed or irritable: 0 = Not at all Feeling afraid as if something awful might happen: 0 = Not at all Total ALFREDITO-7 score (0-4 normal; 5-9 mild; 10-14 moderate; 15-21 severe): 0 Source: Developed by Drs. Hong Lucia, Yudelka Ba, Darrius Gonzales and colleagues, with an educational jamison from [employer]. ALFREDITO-7 Assessment Billing ALFREDITO-7 Assessment Tool: ALFREDITO-7 Assessment 42421 Review of Systems Const All systems reviewed & are unremarkable except as noted in HPI and below Eyes Reports no additional complaints ENT Reports no additional complaints Card Reports no additional complaints Resp Reports no additional complaints GI Reports no additional complaints Reports no additional complaints Physical exam (Primary Care) Vital Signs: Last Vital Signs Temp 98.3 F 03/01/25 14:22 Pulse 83 03/01/25 14:22 Resp 18 03/01/25 14:22 BP 110/64 03/01/25 14:22 Pulse Ox 98 03/01/25 14:22 Oxygen Delivery Method Room Air 03/01/25 14:22 BMI result Body Mass Index 23.6 Tobacco/Smoking Status: Tobacco use Status Tobacco use date assessed 03/01/25 03/01/25 14:27 Patient Tobacco Use Status Former Tobacco user (30 03/01/25 13:53 years ) e-Cigarette/Vaping Use Never Used 03/01/25 13:53 Thrive Assessment: Date of Thrive Assessment Date Thrive assessed 03/01/25 03/01/25 13:53 Const General: no acute distress HENMT Head: Yes normal to inspection Ears: hearing grossly normal bilaterally Face and sinus: Yes normal facial exam Mouth: Normal oral and palatal mucosa present Throat: Yes posterior oropharynx normal Eyes General: appearance normal, both eyes and all related structures Neck Neck: Yes no lymphadenopathy and Yes supple Resp Effort & Inspection: normal respiratory effort Auscultation: clear to auscultation bilaterally Cardio Rhythm: regular rhythm Heart sounds: S1 normal heart sound present and S2 normal heart sound present GI Inspection: Yes normal to inspection Palpation (GI): Soft to palpation Percussion: Yes normal to percussion Auscultation: normal bowel sounds Coding Level of Care Code Est Pt Prev Care >65y(67778) Diagnoses Vitamin B12 deficiency E53.8 Vitamin D deficiency E55.9 Anxiety and depression F41.9; F32.A H/O colonoscopy Z98.890 Annual physical exam Z00.00 Hair loss L65.9 Additional Codes ALFREDITO-7 Assessment Billing - ALFREDITO-7 Assessment Tool: ALFREDITO-7 Assessment 19058 ([id number]) Assessment & Plan Assessment & Plan (1) Vitamin B12 deficiency: Code(s): E53.8 - Deficiency of other specified B group vitamins Category: Medical Plan: check B 12 level (2) Vitamin D deficiency: Code(s): E55.9 - Vitamin D deficiency, unspecified Category: Medical Plan: cont vit D (3) Anxiety and depression: Comment: cont fluoxetine Code(s): F41.9 - Anxiety disorder, unspecified; F32.A - Depression, unspecified Category: Medical Plan: cont med (4) H/O colonoscopy: Comment: 12/[address] Thornton, recheck 3 yrs Code(s): Z98.890 - Other specified postprocedural states Category: Surgical Plan: due next year (5) Annual physical exam: Code(s): Z00.00 - Encounter for general adult medical examination without abnormal findings Category: Medical Plan: well balanced diet, exercise discussed, pt will schedule mammogram (6) Hair loss: Comment: f/u with dermatology, on Finasteride and Estradiol Code(s): L65.9 - Nonscarring hair loss, unspecified Category: Medical Plan: cont meds Orders: Orders Vitamin B12 and Folate Today E53.8 - Deficiency of other specified B group vitamins Comprehensive [place]. Panel Fast 1 Year E53.8 - Deficiency of other specified B group vitamins, E55.9 - Vitamin D deficiency, unspecified, Z86.79 - Personal history of other diseases of the circulatory system Complete Blood Count Auto Diff 1 Year E53.8 - Deficiency of other specified B group vitamins, E55.9 - Vitamin D deficiency, unspecified, Z86.79 - Personal history of other diseases of the circulatory system Vitamin B12 and Folate 1 Year E53.8 - Deficiency of other specified B group vitamins, E55.9 - Vitamin D deficiency, unspecified, Z86.79 - Personal history of other diseases of the circulatory system Vitamin D 25-OH Total 1 Year E53.8 - Deficiency of other specified B group vitamins, E55.9 - Vitamin D deficiency, unspecified, Z86.79 - Personal history of other diseases of the circulatory system TSH reflex Free T4 1 Year E53.8 - Deficiency of other specified B group vitamins, E55.9 - Vitamin D deficiency, unspecified, Z86.79 - Personal history of other diseases of the circulatory system Lipid Panel 1 Year E53.8 - Deficiency of other specified B group vitamins, E55.9 - Vitamin D deficiency, unspecified, Z86.79 - Personal history of other diseases of the circulatory system Medications: New valacyclovir 500 mg PO DAILY 90 tabs 1RF estradiol 0.5 mg PO DAILY 90 tabs 3RF Changed From finasteride 1.25 mg PO DAILY To finasteride 2.5 mg PO DAILY Refilled simvastatin 20 mg PO BEDTIME 90 tabs 3RF fluoxetine 20 mg PO DAILY 90 caps 3RF
[2025-03-01 14:22] VITALS: BP 110/64; PULSE 83; RESP 18; TEMP 36.8; O2SAT 98; BMI 23.6
== END 2025-03-01 16:58 | disposition home or self-care (01) ==
PROVIDERS: PCP Internal Medicine; Visit Provider Internal Medicine
DX: E53.8 Deficiency of other specified B group vitamins (principal); E55.9 Vitamin D deficiency, unspecified; F41.9 Anxiety disorder, unspecified; F32.A Depression, unspecified; Z98.890 Other specified postprocedural states; Z00.00 Encounter for general adult medical examination without abnormal findings; L65.9 Nonscarring hair loss, unspecified

== ENCOUNTER → 2025-03-01 13:07 | Outpatient (BNVA) | payer MEDICARE, SELFPAY | PROVIDERS: PCP Internal Medicine; Visit Provider Internal Medicine | DX: Z00.00 Encounter for general adult medical examination without abnormal findings (principal); E53.8 Deficiency of other specified B group vitamins; E55.9 Vitamin D deficiency, unspecified; F41.9 Anxiety disorder, unspecified; F32.A Depression, unspecified; L65.9 Nonscarring hair loss, unspecified; Z98.890 Other specified postprocedural states | CPT/HCPCS: 96127; 99397 ==

== ENCOUNTER 2025-03-02 07:16 | Outpatient (REF) | payer MEDICARE, SELFPAY ==
[2025-03-02 10:20] LABS: Hematocrit 42.3 % (37.0-47.0); Hemoglobin 13.6 g/dl (12.0-16.0); Imm Gran Abs Auto 0.01 X10*3/uL (0.00-0.03); Imm Gran Pct Auto 0.2 % (0.0-0.4); Lymphocytes Absolute Auto 3.4 X10*3/uL (1.2-4.9); MANUAL DIFF FLAG SCAN; Mean Corpuscular HGB Conc 32.2 g/dl (31.0-35.0); Mean Corpuscular Hemoglobin 32.3 pg (27.0-33.0); Mean Corpuscular Volume 100.5 fL (80.0-98.0); NRBC Abs Auto 0.000 X10*3/uL (0.0-0.012); NRBC Pct Auto 0.0 /100WBC (0.0-0.2); Platelet Count 255 X10*3/uL (160-400); Red Blood Count 4.21 X10*6/uL (4.20-5.50); SCAN SMEAR FLAG 1; White Blood Count 5.5 X10*3/uL (4.8-10.8)
[2025-03-02 10:27] LABS: Appearance Urine Cloudy; Glucose Urine UA Negative (Negative); PH 6.0 (5.0-9.0); Specific Gravity - Urine 1.020 (1.005-1.025)
[2025-03-02 10:51] LABS: Alanine Aminotransferase 15 U/L (0-31); Albumin Level 4.8 g/dL (3.5-5.0); Alkaline Phosphatase 41 U/L (39-117); Anion Gap 11 (12-20); Aspartate Amino Transferase 26 U/L (5-31); Blood Urea Nitrogen 18 mg/dL (9-16); Calcium 9.3 mg/dL (8.4-10.2); Carbon Dioxide 30 mmol/L (22-29); Chloride 106 mmol/L (96-108); Cholesterol 218 mg/dL (<200); Estimated Glomerular Filt Rate > 60; HDL Cholesterol 65 mg/dL (>40); Potassium 4.5 mmol/L (3.3-5.1); Sodium 142 mmol/L (135-145); Total Protein 6.9 g/dL (6.5-8.0); Triglycerides 137 mg/dL (<150)
[2025-03-02 11:07] LABS: Folate 13.3 ng/mL (> or = 4.0); Vitamin B12 486 pg/mL (200-900)
== END 2025-03-02 07:17 | disposition home or self-care (01) ==
LOC: HO.HMGCLDS 07:16
PROVIDERS: PCP Internal Medicine; Visit Provider Internal Medicine
DX: Z01.419 Encounter for gynecological examination (general) (routine) without abnormal findings (principal); E55.9 Vitamin D deficiency, unspecified; E53.8 Deficiency of other specified B group vitamins; Z78.0 Asymptomatic menopausal state; Z13.6 Encounter for screening for cardiovascular disorders; Z13.29 Encounter for screening for other suspected endocrine disorder
CPT/HCPCS: 36415; 80053; 80061; 81001; 82306; 82607; 82746; 84443; 85025

== ENCOUNTER 2025-05-07 09:02 | Outpatient (REF) | payer MEDICARE, SELFPAY ==
[2025-05-07 11:53] LABS: Appearance Urine Clear; Glucose Urine UA Negative (Negative); PH 6.0 (5.0-9.0); Specific Gravity - Urine 1.025 (1.005-1.025); UMIC TRIGGER UA YES
== END 2025-05-07 09:03 | disposition home or self-care (01) ==
LOC: HO.HMGCLDS 09:02
PROVIDERS: PCP Internal Medicine; Visit Provider Internal Medicine
DX: R30.0 Dysuria (principal)
CPT/HCPCS: 81001; 87086; 87147